=== PATIENT | male | born 1935 | race Caucasian/White ===

== ENCOUNTER 2020-08-16 11:13 | Inpatient (IN) | payer MEDICARE, MEDICAID ==
[~2020-08-16] VITALS: Ht 167.6 cm; Wt 61.2 kg
[2020-08-16 11:40] VITALS: BP 108/87
[2020-08-16] MEDS ORDERED: DONEPEZIL HCL5 M2 GT (12:07)
[2020-08-16] MEDS ORDERED: ATORVASTATIN CA10 MG GT (12:07)
[2020-08-16] MEDS ORDERED: AMLODIPINE BESYL5 MG GT (12:07)
[2020-08-16] MEDS ORDERED: CRANBERRY450 M4 GT (12:07)
[2020-08-16] MEDS ORDERED: ALBUTEROL SULF8.5 G1 INH (12:07)
[2020-08-16] MEDS ORDERED: ASPIRIN81 MG GT (12:07)
[2020-08-16] MEDS ORDERED: GUAIFENESI100 MG/5 M GT (12:13)
[2020-08-16] MEDS ORDERED: VIBRAMYCIN100 MG ORAL (12:13)
[2020-08-16] MEDS ORDERED: NAMENDA5 MG ORAL (12:13)
[2020-08-16] MEDS ORDERED: DOCUSATE SODIU100 MG GT (12:13)
[2020-08-16] MEDS ORDERED: METOPROLOL TAR100 M1 GT (12:13)
[2020-08-16] MEDS ORDERED: NOVOLOG100 UNITS1 SUBQ (12:13)
[2020-08-16] MEDS ORDERED: MULTIVITAMINS1 EAC8 GT (12:13)
[2020-08-16] MEDS ORDERED: MILK OF MA400 MG/51 GT (12:13)
[2020-08-16] MEDS ORDERED: ZYPREXA2.5 MG GT (12:19)
[2020-08-16] MEDS ORDERED: VITAMIN B-1100 MG GT (12:19)
[2020-08-16] MEDS ORDERED: PROTONIX40 M2 GT (12:19)
[2020-08-16] MEDS ORDERED: ASCORBIC ACID500 MG GT (12:19)
[2020-08-16] MEDS ORDERED: ACETAMINOPHEN325 M1 GT (12:19)
--- NOTE | 2020-08-16 12:21 | Emergency Room Report ---
History of Present Illness General Chief Complaint: Generalized Weakness Source: Patient, EMS Present Illness HPI 85M PMHx DM HTN HLD CHF CKD BPH, GERD, chronic deconditioning, atrophy, dysphagia, schizophrenia, anxiety, electrolyte disturbance,BIBA from [facility] for decreased oral intake and altered mental status since yesterday. History is limited secondary to patient's clinical condition. PMD Shechter The patient's symptoms were gradual onset, severity was moderate, duration since 1 day. Quality: Generally weak Past medical history: DM HTN HLD CHF CKD BPH, GERD, chronic deconditioning, atrophy, dysphagia, schizophrenia, anxiety, electrolyte disturbance Past surgical history: PEG tube Smoking: Denies Alcohol use: Denies Drug use: Denies Review of systems: History is limited secondary to patient's clinical status 14 point Review of Systems is otherwise negative except per HPI Physical Exam: GENERAL: Awake_alert_ nontoxic, no acute distress Spo2 95% on RA -normal. Chronically ill-appearing. Cachectic. EYES: Extraocular muscles are intact. Conjunctivae clear. Lids without swelling ENT: External nose and ear normal_in_appearance. Oropharynx clear. Head_atraumatic, dry_oral_mucosa NECK: No JVD. No meningismus. No thyromegaly. Supple. Trachea midline RESP: Normal respiratory effort. Symmetric rise. No stridor. Clear_to_auscultation_No_rales_No_wheezes CARDIAC: Regular rate and regular rhytm. No_significant pedal edema. ABDOMEN: Soft. Nondistended. Nontender_No_rebound_or_guarding. G-tube. Soiled diaper MSK: Normal muscle tone, without rigidity. Extremities without asymmetric deformity or swelling. SKIN: Warm and dry. No visible cyanosis or pallor NEUROLOGIC: Alert, oriented x0. Motor_and_sensation_grossly_intact. Uncooperative with examination Psych: Normal mood and affect, normal judgment and insight - COORDINATION OF CARE Case was discussed with: Patient , Patient's Physician Any labs and imaging that were ordered were interpreted as part of the medical decision making: Medical Decision Making/Plan: Differential diagnosis includes dehydration, hypovolemia, electrolyte derangement such as hyponatremia / hypoglycemia, neuromuscular junction disorder such as myasthenia gravis, GI bleed, anemia, UTI, among others. Patient sent from intermediate facility for generalized weakness. Patient is uncooperative with examination and has baseline schizophrenia. The patient feels generally weak but has no focal neurologic deficits, abnormal muscle tone, hypo/hyperreflexia, or fatigability. No evidence of stroke, spinal cord emergency, neuromuscular junction disorder, or multiple sclerosis at this time. Lab results were concerning for severe dehydration with sodium level of 169, lactate elevation greater than 3, and FRANCY. Creatinine is 2.1 at this time. Suspect prerenal azotemia. Cannot rule out infectious process. Urine is pending. Patient is hypovolemic therefore he will get rehydrated and will be straight cathed for urine. Antibiotics given. COVID swab was negative. The patient appears well hydrated and has normal vitals, no evidence of significant dehydration / hypovolemia at this time. Although the patient does not have any evidence of an emergent cause of their symptoms, they do appear to be significantly generally weak and deconditioned with failure to thrive. The patient will therefore be admitted for rehabilitation, physical therapy, and potential placement into a facility with increased resources for care given the patients inability to adequately perform their activities of daily living which would be required to be safely discharged home. I spoke with Dr. Dee, and reviewed the patients presentation, workup, results, and treatment. They will admit the patient for further care and evaluation, and assume care of the patient at this time. Allergies: Coded Allergies: VANCOMYCIN (Verified Allergy, Unknown, 08/16/20) COVID-19 Screening Contact w/high risk pt: No Experienced COVID-19 symptoms?: Yes COVID-19 Testing performed GUIDE SETTER: Yes COVID-19 Screening: Negative COVID-19 COVID-19 Testing Source: 08/11/20 Nursing Documentation-[facility] Hx Hypertension: Yes Hx Diabetes: Yes - type 2 Physical Exam Vital Signs Date Time Temp Pulse Resp B/P (MAP) Pulse Ox O2 Delivery O2 Flow Rate FiO2 08/16/20 11:19 98.2 82 19 108/87 (94) 98 Room Air Sp02 EP Interpretation: reviewed, normal Medical Decision Making Diagnostic Impression: Primary Impression: Episode of generalized weakness Additional Impressions: Hypernatremia Severe dehydration FRANCY (acute kidney injury) Lactic acidosis Failure to thrive EKG Diagnostic Results Troponin ordered: Yes IKER Scribe Text 12-lead EKG (interpreted by me) Time: 1153 Indication: Sinus Tracing visualized and Interpreted by me. Rhythm: Normal sinus rhythm Rate: 85 bpm QTc: 514 Morphology: No_significant_ST_elevations_or_depressions, No STEMI Impression: Normal_sinus_rhythm_without_significant_abnormality. Sinus arrhythmia. RBBB. LAFB. LVH. Rhythm Strip Diag. Results Rhythm Strip Time: 13:24 EP Interpretation: yes Rate: 93 Rhythm: NSR, no PVC's, no ectopy Chest X-Ray Diagnostic Results Chest X-Ray Diagnostic Results : IKER Scrbreana Text Chest X-Ray: Views: [ 1 ] view(s) Indication: Cough Findings: Normal heart size. Mediastinum normal. Pneumonia Impression: Pulmonary consolidations. Left lower lobe atelectasis versus pleural effusion. The X-ray(s) were independently viewed and interpreted contemporaneously Electronically signed by Sadia bruno DO Last Vital Signs Date Time Temp Pulse Resp B/P (MAP) Pulse Ox O2 Delivery O2 Flow Rate FiO2 08/16/20 11:40 82 19 Room Air 08/16/20 11:19 98.2 108/87 (94) 98 Disposition: ADMITTED INPATIENT Admit Decision Time: 12:24 Condition: Stable Sadia Lamb D.O. Aug 16, 2020 12:21
[2020-08-16 13:13] LABS: BASOPHILS % (AUTO) 0.6 % (0.0-2.0); EOSINOPHILS % (AUTO) 1.9 % (0.0-3.0); HEMATOCRIT 46.2 % (42.0-52.0); HEMOGLOBIN 13.9 G/DL (14.2-18.0); MEAN CORPUSCULAR VOLUME 89 FL (80-99); MONOCYTES % (AUTO) 6.7 % (1.0-10.0); NEUTROPHILS % (AUTO) 70.8 % (45.0-75.0); PLATELET COUNT 203 K/UL (150-450); RED BLOOD COUNT 5.19 M/UL (4.70-6.10); RED CELL DISTRIBUTION WIDTH 15.1 % (11.6-14.8); WHITE BLOOD COUNT 7.2 K/UL (4.8-10.8)
[2020-08-16 13:40] LABS: ALANINE AMINOTRANSFERASE 45 U/L (12-78); ALBUMIN 3.2 G/DL (3.4-5.0); ALBUMIN/GLOBULIN RATIO 0.6 (1.0-2.7); ALKALINE PHOSPHATASE 98 U/L (46-116); ANION GAP 9 mmol/L (5-15); ASPARTATE AMINO TRANSFERASE 23 U/L (15-37); BILIRUBIN,TOTAL 0.4 MG/DL (0.2-1.0); BLOOD UREA NITROGEN 57 mg/dL (7-18); CALCIUM 10.7 MG/DL (8.5-10.1); CARBON DIOXIDE 30 MMOL/L (21-32); CHLORIDE 130 MMOL/L (98-107); CREATINE KINASE 52 U/L (26-308); CREATININE 2.1 MG/DL (0.55-1.30); POTASSIUM 3.6 MMOL/L (3.5-5.1)
[2020-08-16 13:43] LABS: SODIUM 169 MMOL/L (136-145)
[2020-08-16] MEDS ORDERED: cefTRIAXone 1 GM in NS 55 ML IVPB ONE (13:45)
--- NOTE | 2020-08-16 14:49 | Diagnostic Imaging Report ---
Indication: Cough Technique: One view of the chest Comparison: none Findings: There is elevation of the left hemidiaphragm. Inspiration is suboptimal overall. Lungs and pleural spaces are clear except for some mild interstitial prominence which is probably due to senescent changes. Impression: No acute process
--- NOTE | 2020-08-16 15:15 | History and Physical Report ---
DATE OF ADMISSION: 08/16/2020 CHIEF COMPLAINT: Generalized weakness. HISTORY OF PRESENT ILLNESS: This is an 85-year-old male from [facility]. I have been called several times during the last few weeks about the patient becoming gradually weak. The patient tested several times positive for COVID-19. The patient himself is unable to give any further information due to combination of schizophrenia and multiple medical problems. PAST MEDICAL HISTORY: 1. Schizophrenia. 2. Type 2 diabetes mellitus. 3. Hypertensive cardiovascular disease. 4. Gastroesophageal reflux disease. 5. Status post gastrostomy tube, which has been pulled recently and not reinserted due to insistence of the nursing when the patient started eating. 6. Dysphagia. 7. Benign prostatic hypertrophy. MEDICATIONS: Albuterol inhaler, amlodipine, baby aspirin, atorvastatin, cranberry tablet, Aricept, doxy capsules started on 08/12/2020, Colace, vitamin D3, guaifenesin solution, metoprolol, milk of magnesia p.r.n., multivitamins, Namenda, insulin sliding scale, Protonix, Pro-Stat liquid, thiamine, Tylenol p.r.n., vitamin C, and Zyprexa. ALLERGIES: No known drug allergies. FAMILY HISTORY: Unable to obtain due to his mental status. SOCIAL HISTORY: Unable to obtain due to his mental status. REVIEW OF SYSTEMS: Unable to obtain due to his mental status. PHYSICAL EXAMINATION: GENERAL: This is an elderly male who is obtunded. VITAL SIGNS: Blood pressure 108/87, pulse 82, respirations 19, and temperature 98.2, oral. HEENT: The head is normocephalic and atraumatic. Pupils are equal and reactive to light. NECK: Supple. Trachea is midline. There was no lymphadenopathy or thyromegaly. LUNGS: Bilateral rhonchi. HEART: Regular rate and rhythm without rubs, murmurs, or gallops. ABDOMEN: Soft and nontender. Bowel sounds were active. EXTREMITIES: No clubbing, cyanosis, or edema. NEUROLOGICAL: He is obtunded. There were no gross focal findings. LABORATORY AND ANCILLARY DATA: CBC within normal limits. Chemistry, sodium 169, potassium 3.6, BUN 57, creatinine 2.1, glucose 223. Lactic acid 3.6. SARS COVID is negative. Urinalysis pending. ASSESSMENT: 1. Severe volume depletion. 2. Severe hypernatremia. 3. Rule out septicemia. PLAN: 1. Hypotonic volume repletion with D5W. 2. Broad spectrum IV antibiotics. 3. ID and Pulmonary consults. Steven Dee M.D. DR: GENE JOB#: [id number] CC:
[2020-08-16 15:23] VITALS: BP 119/76
[2020-08-16] MEDS ORDERED: Albuterol ud Inhalation HHN PRN (19:15)
[2020-08-16] MEDS ORDERED: Albuterol 90mcg Inhaler 8gm INH PRN (19:15)
--- NOTE | 2020-08-16 19:27 | Pulmonology Progress Note ---
Subjective Allergies: Coded Allergies: VANCOMYCIN (Verified Allergy, Unknown, 08/16/20) Objective Last 24 Hour Vital Signs Date Time Temp Pulse Resp B/P (MAP) Pulse Ox O2 Delivery O2 Flow Rate FiO2 08/16/20 18:13 Nasal Cannula 3.0 08/16/20 15:37 98.2 84 19 119/76 98 Room Air 08/16/20 15:23 98.2 84 19 119/76 98 Room Air 08/16/20 11:40 82 19 Room Air 08/16/20 11:40 98.2 19 108/87 98 Room Air 08/16/20 11:19 98.2 82 19 108/87 (94) 98 Room Air Microbiology Date/Time Source Procedure Growth Status 08/16/20 12:08 Nasopharynx SARS-CoV-2 RdRp Gene Assay - Final Complete Laboratory Tests 08/16/20 12:08: White Blood Count 7.2, Red Blood Count 5.19, Hemoglobin 13.9L, Hematocrit 46.2, Mean Corpuscular Volume 89, Mean Corpuscular Hemoglobin 26.9L, Mean Corpuscular Hemoglobin Concent 30.2L, Red Cell Distribution Width 15.1H, Platelet Count 203, Mean Platelet Volume 12.5H, Neutrophils (%) (Auto) 70.8, Lymphocytes (%) (Auto) 20.0, Monocytes (%) (Auto) 6.7, Eosinophils (%) (Auto) 1.9, Basophils (%) (Auto) 0.6, Sodium Level 169*H, Potassium Level 3.6, Chloride Level 130H, Carbon Diox jim Level 30, Anion Gap 9, Blood Urea Nitrogen 57H, Creatinine 2.1H, Estimat Glomerular Filtration Rate 30.1, Glucose Level 223H, Lactic Acid Level 3.60H, Calcium Level 10.7H, Total Bilirubin 0.4, Aspartate Amino Transf (AST/SGOT) 23, Alanine Aminotransferase (ALT/SGPT) 45, Alkaline Phosphatase 98, Total Creatine Kinase 52, Troponin I 0.052, C-Reactive Protein, Quantitative 14.2H, Pro-B-Type Natriuretic Peptide 298H, Total Protein 8.5H, Albumin 3.2L, Globulin 5.3, Albumin/Globulin Ratio 0.6L, Lipase 112 08/16/20 14:49: Lactic Acid Level 1.70 Current Medications Medications (Trade) Dose Ordered Sig/Deepali Route PRN Reason Start Time Stop Time Status Last Admin Dose Admin Acetaminophen (Tylenol) 650 mg Q4H PRN ORAL Temp >100.5 08/16/20 17:00 09/15/20 16:59 Albuterol Sulfate (Proventil) 2.5 mg Q4H PRN HHN Shortness of Breath 08/16/20 19:15 08/21/20 19:14 Heparin Sodium (Porcine) (Heparin 5000 units/ml) 5,000 units EVERY 12 HOURS SUBQ 08/16/20 21:00 09/30/20 20:59 Piperacillin Sod/ Tazobactam Sod 3.375 gm/Sodium Chloride 110 ml @ 27.5 mls/hr Q12HR IVPB 08/16/20 21:00 08/23/20 20:59 Potassium Chloride 30 meq/ Dextrose 1,015 ml @ 125 mls/hr Q8H8M IV 08/16/20 19:00 09/15/20 18:59 08/16/20 18:02 Assessment/Plan Assessment/Plan Pulmonary Consultation HPI: 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 Developed hypoxia after admission, currently on 3L/min O2. Started on broad spectrum antibiotics. The patient himself is not able to give any history. Past Medical History: Schizophrenia. Type 2 diabetes mellitus. Hypertensive cardiovascular disease. Gastroesophageal reflux disease. Status post gastrostomy tube, which has been pulled recently Dysphagia. Benign prostatic hypertrophy. Medications noted Allergies: Vancomycin: No known drug allergies. Social History:NA Family History: NA Review of Systems: NA Objective: Vital Signs Noted PE: GENERAL: This is an elderly male who is obtunded. HEENT: The head is normocephalic and atraumatic. Pupils are equal and reactive to light. NECK: Supple. Trachea is midline. There was no lymphadenopathy or thyromegaly. LUNGS: Bilateral rhonchi. HEART: Regular rate and rhythm without rubs, murmurs, or gallops. ABDOMEN: Soft and nontender. Bowel sounds were active. EXTREMITIES: No clubbing, cyanosis, or edema. NEUROLOGICAL: He is obtunded. There were no gross focal findings. Per report,deferred Covid 19 Laboratory noted CXR:noted - Pulmonary infiltrates Assessment: Covid Pneumonia, possible Sepsis Hypoxic Respiratory Failure Severe volume depletion Severe hypernatremia Schizophrenia. Type 2 diabetes mellitus. Hypertensive cardiovascular disease. Gastroesophageal reflux disease. Status post gastrostomy tube, which has been pulled recently Dysphagia. Benign prostatic hypertrophy Plan: Continue Antibiotics- ID consulted O2 PRN Decadron IVF Bronchodilators PPX Monitor labs Zian Cortes MD Aug 16, 2020 19:27
[2020-08-16] MEDS: dexAMETHasone 10mg/ml Inj IV SCH (20:44)
[2020-08-16] MEDS: Piperacillin/Tazobactam 3.375 GM in NS 110 ML IVPB SCH (20:45)
[2020-08-16] MEDS: Heparin 5000 units/ml inj SUBQ SCH (20:50)
[2020-08-17] VITALS: BP 135/79
[2020-08-17 04:00] VITALS: BP 143/89
[2020-08-17 06:48] LABS: HEMATOCRIT 39.2 % (42.0-52.0); HEMOGLOBIN 12.5 G/DL (14.2-18.0); MEAN CORPUSCULAR VOLUME 85 FL (80-99); PLATELET COUNT 184 K/UL (150-450); RED CELL DISTRIBUTION WIDTH 15.4 % (11.6-14.8)
[2020-08-17 06:59] LABS: CALCIUM 10.4 MG/DL (8.5-10.1); CREATININE 1.7 MG/DL (0.55-1.30)
[2020-08-17 08:00] VITALS: BP 155/89
[2020-08-17] MEDS: dexAMETHasone 10mg/ml Inj IV SCH (09:34)
[2020-08-17] MEDS: Piperacillin/Tazobactam 3.375 GM in NS 110 ML IVPB SCH ×2 (09:34→20:49)
[2020-08-17] MEDS: Heparin 5000 units/ml inj SUBQ SCH ×2 (09:35→21:06)
[2020-08-17 12:00] VITALS: BP 150/99
--- NOTE | 2020-08-17 13:20 | General Progress Note ---
Subjective Allergies: Coded Allergies: VANCOMYCIN (Verified Allergy, Unknown, 08/16/20) Subjective Confused Objective Last 24 Hour Vital Signs Date Time Temp Pulse Resp B/P (MAP) Pulse Ox O2 Delivery O2 Flow Rate FiO2 08/17/20 12:00 97.2 82 20 150/99 (116) 94 08/17/20 09:00 Room Air 08/17/20 08:00 97.4 87 20 155/89 (111) 94 08/17/20 04:00 97.2 90 20 143/89 (107) 93 08/17/20 00:00 97.5 82 20 135/79 (97) 93 08/16/20 18:13 Nasal Cannula 3.0 08/16/20 15:37 98.2 84 19 119/76 98 Room Air 08/16/20 15:23 98.2 84 19 119/76 98 Room Air Laboratory Tests 08/16/20 14:49: Lactic Acid Level 1.70 08/17/20 05:55: White Blood Count 5.0, Red Blood Count 4.60L, Hemoglobin 12.5L, Hematocrit 39.2L , Mean Corpuscular Volume 85, Mean Corpuscular Hemoglobin 27.2, Mean Corpuscular Hemoglobin Concent 31.9L, Red Cell Distribution Width 15.4H, Platelet Count 184, Mean Platelet Volume 12.2H, Neutrophils (%) (Auto) , Lymphocytes (%) (Auto) , Monocytes (%) (Auto) , Eosinophils (%) (Auto) , Basophils (%) (Auto) , Differential Total Cells Counted 100, Neutrophils % (Manual) 87H, Lymphocytes % (Manual) 12L, Monocytes % (Manual) 1, Eosinophils % (Manual) 0, Basophils % (Manual) 0, Band Neutrophils 0, Platelet Estimate Adequate, Platelet Morphology Normal, Anisocytosis 1+, Sodium Level 165*H, Potassium Level 4.0, Chloride Level 131H, Carbon Dioxide Level 24, Anion Gap 8, Blood Urea Nitrogen 49H, Creatinine 1.7H, Estimat Glomerular Filtration Rate 38.4, Glucose Level 260H, Calcium Level 10.4H, Magnesium Level 2.6H Height (Feet): 5 Height (Inches): 6.00 Weight (Pounds): 135 Objective CV RR Lungs CTA Abd SNT. BS + E No CCE Assessment/Plan Assessment/Plan: Severe volume depletion, hypernatremia ---hypotonic IVF ---improving parameters. Holding [facility] med. Steven Dee MD Aug 17, 2020 13:20
--- NOTE | 2020-08-17 14:45 | Consultation ---
DATE OF CONSULTATION: 08/17/2020 INFECTIOUS DISEASE CONSULTATION CONSULTING PHYSICIAN: Dorei Chaudhary MD. REFERRING PHYSICIAN: Steven Dee MD. REASON FOR CONSULTATION: COVID-19 pneumonia. HISTORY OF PRESENTING ILLNESS: This is an 85-year-old gentleman with history of diabetes, hypertension, schizophrenia, GERD, benign prostatic hypertrophy, who comes in with increasing weakness. He has COVID-19 pneumonia and an Infectious Diseases consultation has been obtained for antibiotics. PAST MEDICAL HISTORY: 1. History of diabetes. 2. Hypertension. 3. Schizophrenia. 4. GERD. 5. Dysphagia. 6. Benign prostatic hypertrophy. SOCIAL HISTORY: Unknown. FAMILY HISTORY: Unknown. REVIEW OF SYSTEMS: Unable to obtain currently. MEDICATIONS: As an inpatient, he is on subcutaneous heparin, Zosyn, dexamethasone, albuterol, potassium, Tylenol. ALLERGIES: He is allergic to vancomycin. PHYSICAL EXAMINATION: VITAL SIGNS: Temperature 97.2, T-max of 98.2, pulse 82, respiratory rate 20, blood pressure 150/99. O2 saturation of 94% on room air. HEENT: Pupils are equally reactive to light and accommodation. Mouth appears clean without thrush. NECK: Supple. No adenopathy. No JVD. CARDIOVASCULAR: Regular rate and rhythm. No murmurs. LUNGS: Clear to auscultation bilaterally. No crackles. No wheezes. ABDOMEN: Soft, nontender. No organomegaly. EXTREMITIES: No cyanosis, no clubbing, no edema. Chemistry, sodium 169, potassium 3.6, BUN 57, creatinine 2.1, glucose 223. Lactic acid 3.6. SARS COVID is negative LABORATORY DATA: White count of 5, hemoglobin 12.5, hematocrit 39.2, MCV 85, platelet count of 184,000. Neutrophils of 87%. Sodium 165, potassium 4, chloride 131, bicarb 24, BUN 49, creatinine 1.7. Glucose of 260. Calcium 10.4. Total bilirubin 0.4, AST 23, ALT 45, alkaline phosphatase 98. CK of 52, troponin 0.05. C-reactive protein of 14. Beta-natriuretic peptide 298. Total protein 8.5, albumin 3.2. Lipase of 112. COVID-19 rapid test is negative. Chest x-ray is showing no acute process. ASSESSMENT: This is an 85-year-old gentleman with history of diabetes, hypertension, schizophrenia, and GERD, who comes in with weakness and would like to rule out, 1. Urinary tract infection. 2. He has previous history of COVID-19, but currently is negative. 3. Diabetes. 4. Hypertension. 5. Schizophrenia. PLAN: 1. Continue Zosyn. 2. We will order UA and urine cultures. 3. We will follow up cultures and adjust antibiotics accordingly. I would like to thank Dr. Dee for this consultation. Dorie Chaudhary M.D. DR: ANDREINA JOB#: [id number] CC:
[2020-08-17 16:00] VITALS: BP 143/86
[2020-08-17 20:00] VITALS: BP 147/90
[2020-08-17] MEDS ORDERED: ACETAMINOPHEN325 M1 ORAL (21:15)
[2020-08-17] MEDS ORDERED: ERGOCALCIF200 MCG/1 GT (21:15)
[2020-08-17] MEDS ORDERED: PRO-STAT LIQUID30 ML ORAL (21:15)
--- NOTE | 2020-08-17 21:26 | Pulmonology Progress Note ---
Subjective ROS Limited/Unobtainable: Yes Allergies: Coded Allergies: VANCOMYCIN (Verified Allergy, Unknown, 08/16/20) Objective Last 24 Hour Vital Signs Date Time Temp Pulse Resp B/P (MAP) Pulse Ox O2 Delivery O2 Flow Rate FiO2 08/17/20 21:12 Room Air 08/17/20 16:00 97.2 81 20 143/86 (105) 94 08/17/20 12:00 97.2 82 20 150/99 (116) 94 08/17/20 09:00 Room Air 08/17/20 08:00 97.4 87 20 155/89 (111) 94 08/17/20 04:00 97.2 90 20 143/89 (107) 93 08/17/20 00:00 97.5 82 20 135/79 (97) 93 Microbiology Date/Time Source Procedure Growth Status 08/16/20 12:08 Nasopharynx SARS-CoV-2 RdRp Gene Assay - Final Complete Laboratory Tests 08/17/20 05:55: White Blood Count 5.0, Red Blood Count 4.60L, Hemoglobin 12.5L, Hematocrit 39.2L , Mean Corpuscular Volume 85, Mean Corpuscular Hemoglobin 27.2, Mean Corpuscular Hemoglobin Concent 31.9L, Red Cell Distribution Width 15.4H, Platelet Count 184, Mean Platelet Volume 12.2H, Neutrophils (%) (Auto) , Lymphocytes (%) (Auto) , Monocytes (%) (Auto) , Eosinophils (%) (Auto) , Basophils (%) (Auto) , Differential Total Cells Counted 100, Neutrophils % (Manual) 87H, Lymphocytes % (Manual) 12L, Monocytes % (Manual) 1, Eosinophils % (Manual) 0, Basophils % (Manual) 0, Band Neutrophils 0, Platelet Estimate Adequate, Platelet Morphology Normal, Anisocytosis 1+, Sodium Level 165*H, Potassium Level 4.0, Chloride Level 131H, Carbon Dioxide Level 24, Anion Gap 8, Blood Urea Nitrogen 49H, Creatinine 1.7H, Estimat Glomerular Filtration Rate 38.4, Glucose Level 260H, Calcium Level 10.4H, Magnesium Level 2.6H Current Medications Medications (Trade) Dose Ordered Sig/Deepali Route PRN Reason Start Time Stop Time Status Last Admin Dose Admin Acetaminophen (Tylenol) 650 mg Q4H PRN ORAL Temp >100.5 08/16/20 17:00 09/15/20 16:59 Albuterol Sulfate (Proventil) 2.5 mg Q4H PRN HHN Shortness of Breath 08/16/20 19:15 08/21/20 19:14 Dexamethasone Sodium Phosphate (Decadron 10mg/ ml Inj) 6 mg DAILY IV 08/16/20 19:15 08/25/20 09:01 08/17/20 09:34 Dextrose (Dextrose 50%) 25 ml Q30M PRN IV Hypoglycemia 08/16/20 19:15 11/14/20 19:14 Dextrose (Dextrose 50%) 50 ml Q30M PRN IV Hypoglycemia 08/16/20 19:15 11/14/20 19:14 Heparin Sodium (Porcine) (Heparin 5000 units/ml) 5,000 units EVERY 12 HOURS SUBQ 08/16/20 21:00 09/30/20 20:59 08/17/20 21:06 Piperacillin Sod/ Tazobactam Sod 3.375 gm/Sodium Chloride 110 ml @ 27.5 mls/hr Q12HR IVPB 08/16/20 21:00 08/23/20 20:59 08/17/20 20:49 Potassium Chloride 30 meq/ Dextrose 1,015 ml @ 125 mls/hr Q8H8M IV 08/16/20 19:00 09/15/20 18:59 08/17/20 11:31 Assessment/Plan Assessment/Plan Pulmonary Progress Note HPI: Patient is an 85-year-old [facility] Resident with past medical history of schizophrenia,Type2 Diabetes, Hypertension,GERD,Dysphagia, admitted with COVID-19 pneumonia. Developed hypoxia after admission, currently on RA. IDfollowing. The patient himself is not able to give any history. Past Medical History: Schizophrenia. Type 2 diabetes mellitus. Hypertensive cardiovascular disease. Gastroesophageal reflux disease. Status post gastrostomy tube, which has been pulled recently Dysphagia. Benign prostatic hypertrophy. Medications noted Allergies: Vancomycin: No known drug allergies. Improved O2 requirements Objective: Vital Signs Noted PE: Deferred Covid 19 Laboratory noted CXR:noted - Pulmonary infiltrates Assessment: Covid Pneumonia, possible Sepsis Hypoxic Respiratory Failure Severe volume depletion Severe hypernatremia Schizophrenia. Type 2 diabetes mellitus. Hypertensive cardiovascular disease. Gastroesophageal reflux disease. Status post gastrostomy tube, which has been pulled recently Dysphagia. Benign prostatic hypertrophy Plan: Continue Antibiotics- ID consulted O2 PRN Decadron IVF Bronchodilators PPX Monitor labs Zain Cortes MD Aug 17, 2020 21:26
[2020-08-18] VITALS: BP 157/81
[2020-08-18 04:00] VITALS: BP 138/82
[2020-08-18 06:48] LABS: APPEARANCE,URINE SLIGHTLY CLOUDY; BILIRUBIN, URINE NEGATIVE (NEGATIVE); COLOR,URINE YELLOW; GLUCOSE, URINE (UA) NEGATIVE (NEGATIVE); KETONES,URINE 1+ (NEGATIVE); LEUKOCYTE ESTERASE ,URINE 1+ (NEGATIVE); NITRITE,URINE NEGATIVE (NEGATIVE); PH,URINE 5 (4.5-8.0); PROTEIN,URINE 1+ (NEGATIVE); UROBILINOGEN,URINE NORMAL MG/DL (0.0-1.0)
[2020-08-18 06:56] LABS: BASOPHILS % (AUTO) 0.4 % (0.0-2.0); EOSINOPHILS % (AUTO) 0.1 % (0.0-3.0); HEMATOCRIT 45.4 % (42.0-52.0); HEMOGLOBIN 13.2 G/DL (14.2-18.0); MEAN CORPUSCULAR VOLUME 93 FL (80-99); NEUTROPHILS % (AUTO) 72.7 % (45.0-75.0); PLATELET COUNT 187 K/UL (150-450); RED BLOOD COUNT 4.86 M/UL (4.70-6.10); RED CELL DISTRIBUTION WIDTH 14.3 % (11.6-14.8); WHITE BLOOD COUNT 6.3 K/UL (4.8-10.8)
[2020-08-18 07:05] LABS: CALCIUM 10.7 MG/DL (8.5-10.1); CREATININE 1.8 MG/DL (0.55-1.30); PHOSPHORUS 3.8 MG/DL (2.5-4.9); POTASSIUM 3.9 MMOL/L (3.5-5.1)
[2020-08-18 08:00] VITALS: BP_SYST 147; BP_SYST 175; BP_DIAS 81
[2020-08-18] MEDS: dexAMETHasone 10mg/ml Inj IV SCH (08:26)
[2020-08-18] MEDS: Piperacillin/Tazobactam 3.375 GM in NS 110 ML IVPB SCH ×2 (08:26→17:16)
[2020-08-18] MEDS: Heparin 5000 units/ml inj SUBQ SCH ×2 (08:27→20:17)
--- NOTE | 2020-08-18 09:51 | CDS Physician Query ---
Clarification is required for compliance, coding accuracy, and to reflect severity of illness for this patient Dear Dr. Steven Dee Date: 08/18/2020 Director Of Litigation/CDS Name: Destiny Doherty Clinical documentation states: HNP: 85-year-old male from [facility]. I have been called several times during the last few weeks about the patient becoming gradually weak...1. Severe volume depletion. 2. Severe hypernatremia. 3. Rule out septicemia. PLAN: 1. Hypotonic volume repletion with D5W. 2. Broad spectrum IV antibiotics. 3. ID and Pulmonary consults. 08/17 note: Subjective Confused Please indicate the nature and chronicity of the condition below: [X] Metabolic Encephalopathy [] Toxic Encephalopathy [] Toxic - Metabolic Encephalopathy [] Encephalopathy, Other [x] Dementia with Delirium [] Hypoxic encephalopathy [] Posterior reversible encephalopathy syndrome [] Other: [] Not Applicable Present on Admission: [] Yes [] No [] Clinically Undetermined Physician signature Date Please also document in your Progress Notes and/or Discharge Summary and indicate if the condition was present on admission. MTDD
[2020-08-18 12:00] VITALS: BP_SYST 159; BP_SYST 169; BP_DIAS 91
--- NOTE | 2020-08-18 13:27 | General Progress Note ---
Subjective Allergies: Coded Allergies: VANCOMYCIN (Verified Allergy, Unknown, 08/16/20) Subjective Confused Objective Last 24 Hour Vital Signs Date Time Temp Pulse Resp B/P (MAP) Pulse Ox O2 Delivery O2 Flow Rate FiO2 08/18/20 12:00 98.8 71 19 169/91 (117) 99 08/18/20 12:00 98.8 71 19 159/91 (113) 99 08/18/20 09:00 Room Air 08/18/20 08:00 98.3 56 19 147/81 (103) 98 08/18/20 04:00 97.3 67 20 138/82 (100) 95 08/18/20 00:00 97.3 69 20 157/81 (106) 95 08/17/20 21:12 Room Air 08/17/20 20:00 97.3 62 20 147/90 (109) 94 08/17/20 16:00 97.2 81 20 143/86 (105) 94 Laboratory Tests 08/18/20 05:30: Urine Color Yellow, Urine Appearance Slightly cloudy, Urine pH 5, Urine Specific [place] 1.020, Urine Protein 1+H, Urine Glucose (UA) Negative, Urine Ketones 1+H , Urine Blood Negative, Urine Nitrite Negative, Urine Bilirubin Negative, Urine Urobilinogen Normal, Urine Leukocyte Esterase 1+H, Urine RBC 0, Urine WBC 5-10H, Urine Squamous Epithelial Cells Occasional, Urine Uric Acid Crystals ManyH, Urine Bacteria Few 08/18/20 05:50: White Blood Count 6.3, Red Blood Count 4.86, Hemoglobin 13.2L, Hematocrit 45.4, Mean Corpuscular Volume 93#, Mean Corpuscular Hemoglobin 27.1, Mean Corpuscular Hemoglobin Concent 29.0L, Red Cell Distribution Width 14.3, Platelet Count 187, Mean Platelet Volume 12.6H, Neutrophils (%) (Auto) 72.7, Lymphocytes (%) (Auto) 21.0, Monocytes (%) (Auto) 6.0, Eosinophils (%) (Auto) 0.1, Basophils (%) (Auto) 0.4, Sodium Level 167*H, Potassium Level 3.9, Chloride Level 131H, Carbon Dioxide Level 28, Anion Gap 10, Blood Urea Nitrogen 48H, Creatinine 1.8H, Estima t Glomerular Filtration Rate 36.0, Glucose Level 136#H, Calcium Level 10.7H, Phosphorus Level 3.8, Magnesium Level 2.7H Height (Feet): 5 Height (Inches): 6.00 Weight (Pounds): 135 Objective CV RR Lungs CTA Abd SNT. BS + E No CCE Assessment/Plan Assessment/Plan: Severe volume depletion, hypernatremia ---hypotonic IVF ---improving parameters. Holding SNF meds. Na 167!!! m/p DI!!!! Steven Dee MD Aug 18, 2020 13:27
[2020-08-18 16:00] VITALS: BP 139/76
--- NOTE | 2020-08-18 16:35 | Infectious Diseases Prog Note ---
Assessment/Plan Assessment/Plan A; 1. Urinary tract infection. 2. He has previous history of COVID19, but currently is negative. 3. Diabetes. 4. Hypertension. 5. Schizophrenia. 6. Hypernatremia PLAN: 1. Continue Zosyn. 2. We will f/u urine culture Subjective ROS Limited/Unobtainable: Yes Neurologic: Reports: confusion, other - on restraint Allergies: Coded Allergies: VANCOMYCIN (Verified Allergy, Unknown, 08/16/20) Objective Last 24 Hour Vital Signs Date Time Temp Pulse Resp B/P (MAP) Pulse Ox O2 Delivery O2 Flow Rate FiO2 08/18/20 12:00 98.8 71 19 169/91 (117) 99 08/18/20 12:00 98.8 71 19 159/91 (113) 99 08/18/20 09:00 Room Air 08/18/20 08:00 98.3 56 19 147/81 (103) 98 08/18/20 04:00 97.3 67 20 138/82 (100) 95 08/18/20 00:00 97.3 69 20 157/81 (106) 95 08/17/20 21:12 Room Air 08/17/20 20:00 97.3 62 20 147/90 (109) 94 Height (Feet): 5 Height (Inches): 6.00 Weight (Pounds): 135 General Appearance: no acute distress Respiratory/Chest: lungs clear Cardiovascular: normal rate Abdomen: soft, non tender Extremities: no edema Neurologic/Psychiatric: disoriented Musculoskeletal: atrophy Microbiology Date/Time Source Procedure Growth Status 08/16/20 12:08 Nasopharynx SARS-CoV-2 RdRp Gene Assay - Final Complete Laboratory Tests Test 08/18/20 05:30 08/18/20 05:50 Urine Color Yellow Urine Appearance Slightly cloudy Urine pH 5 (4.5-8.0) Urine Specific [place] 1.020 (1.005-1.035) Urine Protein 1+ (NEGATIVE) H Urine Glucose (UA) Negative (NEGATIVE) Urine Ketones 1+ (NEGATIVE) H Urine Blood Negative (NEGATIVE) Urine Nitrite Negative (NEGATIVE) Urine Bilirubin Negative (NEGATIVE) Urine Urobilinogen Normal MG/DL (0.0-1.0) Urine Leukocyte Esterase 1+ (NEGATIVE) H Urine RBC 0 /HPF (0 - 0) Urine WBC 5-10 /HPF (0 - 0) H Urine Squamous Epithelial Cells Occasional /LPF Urine Uric Acid Crystals Many /LPF (NONE) H Urine Bacteria Few /HPF (NONE) White Blood Count 6.3 K/UL (4.8-10.8) Red Blood Count 4.86 M/UL (4.70-6.10) Hemoglobin 13.2 G/DL (14.2-18.0) L Hematocrit 45.4 % (42.0-52.0) Mean Corpuscular Volume 93 FL (80-99) # Mean Corpuscular Hemoglobin 27.1 PG (27.0-31.0) Mean Corpuscular Hemoglobin Concent 29.0 G/DL (32.0-36.0) L Red Cell Distribution Width 14.3 % (11.6-14.8) Platelet Count 187 K/UL (150-450) Mean Platelet Volume 12.6 FL (6.5-10.1) H Neutrophils (%) (Auto) 72.7 % (45.0-75.0) Lymphocytes (%) (Auto) 21.0 % (20.0-45.0) Monocytes (%) (Auto) 6.0 % (1.0-10.0) Eosinophils (%) (Auto) 0.1 % (0.0-3.0) Basophils (%) (Auto) 0.4 % (0.0-2.0) Sodium Level 167 MMOL/L (136-145) *H Potassium Level 3.9 MMOL/L (3.5-5.1) Chloride Level 131 MMOL/L (98-107) H Carbon Dioxide Level 28 MMOL/L (21-32) Anion Gap 10 mmol/L (5-15) Blood Urea Nitrogen 48 mg/dL (7-18) H Creatinine 1.8 MG/DL (0.55-1.30) H Estimat Glomerular Filtration Rate 36.0 mL/min (>60) Glucose Level 136 MG/DL (74-106) #H Calcium Level 10.7 MG/DL (8.5-10.1) H Phosphorus Level 3.8 MG/DL (2.5-4.9) Magnesium Level 2.7 MG/DL (1.8-2.4) H Current Medications Medications (Trade) Dose Ordered Sig/Deepali Route PRN Reason Start Time Stop Time Status Last Admin Dose Admin Acetaminophen (Tylenol) 650 mg Q4H PRN ORAL Temp >100.5 08/16/20 17:00 09/15/20 16:59 Albuterol Sulfate (Proventil) 2.5 mg Q4H PRN HHN Shortness of Breath 08/16/20 19:15 08/21/20 19:14 Dexamethasone Sodium Phosphate (Decadron 10mg/ ml Inj) 6 mg DAILY IV 08/16/20 19:15 08/25/20 09:01 08/18/20 08:26 Dextrose (Dextrose 50%) 25 ml Q30M PRN IV Hypoglycemia 08/16/20 19:15 11/14/20 19:14 Dextrose (Dextrose 50%) 50 ml Q30M PRN IV Hypoglycemia 08/16/20 19:15 11/14/20 19:14 Heparin Sodium (Porcine) (Heparin 5000 units/ml) 5,000 units EVERY 12 HOURS SUBQ 08/16/20 21:00 09/30/20 20:59 08/18/20 08:27 Piperacillin Sod/ Tazobactam Sod 3.375 gm/Sodium Chloride 110 ml @ 27.5 mls/hr Q8H IVPB 08/18/20 17:00 08/25/20 16:59 Potassium Chloride 30 meq/ Dextrose 1,015 ml @ 175 mls/hr Q5H48M IV 08/16/20 19:00 09/15/20 18:59 08/17/20 11:31 Dimitri Fraser MD Aug 18, 2020 16:35
[2020-08-18 20:00] VITALS: BP 135/93
--- NOTE | 2020-08-18 21:55 | Pulmonology Progress Note ---
Subjective ROS Limited/Unobtainable: Yes Allergies: Coded Allergies: VANCOMYCIN (Verified Allergy, Unknown, 08/16/20) Objective Last 24 Hour Vital Signs Date Time Temp Pulse Resp B/P (MAP) Pulse Ox O2 Delivery O2 Flow Rate FiO2 08/18/20 21:44 Room Air 08/18/20 20:00 98.4 72 20 135/93 (107) 96 08/18/20 16:00 97.7 64 18 139/76 (97) 96 08/18/20 12:00 98.8 71 19 169/91 (117) 99 08/18/20 12:00 98.8 71 19 159/91 (113) 99 08/18/20 09:00 Room Air 08/18/20 08:00 98.3 56 19 147/81 (103) 98 08/18/20 04:00 97.3 67 20 138/82 (100) 95 08/18/20 00:00 97.3 69 20 157/81 (106) 95 Microbiology Date/Time Source Procedure Growth Status 08/16/20 12:08 Nasopharynx SARS-CoV-2 RdRp Gene Assay - Final Complete Laboratory Tests 08/18/20 05:30: Urine Color Yellow, Urine Appearance Slightly cloudy, Urine pH 5, Urine Specific [place] 1.020, Urine Protein 1+H, Urine Glucose (UA) Negative, Urine Ketones 1+H , Urine Blood Negative, Urine Nitrite Negative, Urine Bilirubin Negative, Urine Urobilinogen Normal, Urine Leukocyte Esterase 1+H, Urine RBC 0, Urine WBC 5-10H, Urine Squamous Epithelial Cells Occasional, Urine Uric Acid Crystals ManyH, Urine Bacteria Few 08/18/20 05:50: White Blood Count 6.3, Red Blood Count 4.86, Hemoglobin 13.2L, Hematocrit 45.4, Mean Corpuscular Volume 93#, Mean Corpuscular Hemoglobin 27.1, Mean Corpuscular Hemoglobin Concent 29.0L, Red Cell Distribution Width 14.3, Platelet Count 187, Mean Platelet Volume 12.6H, Neutrophils (%) (Auto) 72.7, Lymphocytes (%) (Auto) 21.0, Monocytes (%) (Auto) 6.0, Eosinophils (%) (Auto) 0.1, Basophils (%) (Auto) 0.4, Sodium Level 167*H, Potassium Level 3.9, Chloride Level 131H, Carbon Dioxide Level 28, Anion Gap 10, Blood Urea Nitrogen 48H, Creatinine 1.8H, Estimat Glomerular Filtration Rate 36.0, Glucose Level 136#H, Calcium Level 10.7H, Phosphorus Level 3.8, Magnesium Level 2.7H Current Medications Medications (Trade) Dose Ordered Sig/Deepali Route PRN Reason Start Time Stop Time Status Last Admin Dose Admin Acetaminophen (Tylenol) 650 mg Q4H PRN ORAL Temp >100.5 08/16/20 17:00 09/15/20 16:59 Albuterol Sulfate (Proventil) 2.5 mg Q4H PRN HHN Shortness of Breath 08/16/20 19:15 08/21/20 19:14 Dexamethasone Sodium Phosphate (Decadron 10mg/ ml Inj) 6 mg DAILY IV 08/16/20 19:15 08/25/20 09:01 08/18/20 08:26 Dextrose (Dextrose 50%) 25 ml Q30M PRN IV Hypoglycemia 08/16/20 19:15 11/14/20 19:14 Dextrose (Dextrose 50%) 50 ml Q30M PRN IV Hypoglycemia 08/16/20 19:15 11/14/20 19:14 Heparin Sodium (Porcine) (Heparin 5000 units/ml) 5,000 units EVERY 12 HOURS SUBQ 08/16/20 21:00 09/30/20 20:59 08/18/20 20:17 Piperacillin Sod/ Tazobactam Sod 3.375 gm/Sodium Chloride 110 ml @ 27.5 mls/hr Q8H IVPB 08/18/20 17:00 08/25/20 16:59 08/18/20 17:16 Potassium Chloride 30 meq/ Dextrose 1,015 ml @ 175 mls/hr Q5H48M IV 08/16/20 19:00 09/15/20 18:59 08/17/20 11:31 Assessment/Plan Assessment/Plan Pulmonary Progress Note HPI: Patient is an 85-year-old [facility] Resident with past medical 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 Developed hypoxia after admission, currently on RA. ID following. The patient himself is not able to give any history. Past Medical History: Schizophrenia. Type 2 diabetes mellitus. Hypertensive cardiovascular disease. Gastroesophageal reflux disease. Status post gastrostomy tube, which has been pulled recently Dysphagia. Benign prostatic hypertrophy. Medications noted Allergies: Vancomycin: No known drug allergies. Improved O2 requirements Objective: Vital Signs Noted PE: Deferred r/o Covid 19 Laboratory noted CXR:noted - Pulmonary infiltrates Assessment: Covid Pneumonia, possible Sepsis Hypoxic Respiratory Failure Severe volume depletion Severe hypernatremia Schizophrenia. Type 2 diabetes mellitus. Hypertensive cardiovascular disease. Gastroesophageal reflux disease. Status post gastrostomy tube, which has been pulled recently Dysphagia. Benign prostatic hypertrophy Plan: Continue Antibiotics- ID consulted O2 PRN IVF Bronchodilators PPX Monitor labs Zain Cortes MD Aug 18, 2020 21:55
[2020-08-19] VITALS: BP 141/83
[2020-08-19] MEDS: Piperacillin/Tazobactam 3.375 GM in NS 110 ML IVPB SCH ×3 (01:02→16:53)
[2020-08-19 04:00] VITALS: BP 139/86
[2020-08-19 08:00] VITALS: BP 162/81
[2020-08-19] MEDS: dexAMETHasone 10mg/ml Inj IV SCH (08:45)
[2020-08-19] MEDS: Heparin 5000 units/ml inj SUBQ SCH ×2 (08:46→21:50)
[2020-08-19 12:00] VITALS: BP 123/63
--- NOTE | 2020-08-19 12:12 | General Progress Note ---
Subjective Allergies: Coded Allergies: VANCOMYCIN (Verified Allergy, Unknown, 08/16/20) Subjective Confused Objective Last 24 Hour Vital Signs Date Time Temp Pulse Resp B/P (MAP) Pulse Ox O2 Delivery O2 Flow Rate FiO2 08/19/20 12:00 97.4 58 18 123/63 (83) 97 08/19/20 09:00 Room Air 08/19/20 08:00 97.0 79 18 162/81 (108) 98 08/19/20 04:00 98.5 74 20 139/86 (103) 95 08/19/20 00:00 98.9 71 20 141/83 (102) 96 08/18/20 21:44 Room Air 08/18/20 20:00 98.4 72 20 135/93 (107) 96 08/18/20 16:00 97.7 64 18 139/76 (97) 96 Height (Feet): 5 Height (Inches): 6.00 Weight (Pounds): 135 Objective CV RR Lungs CTA Abd SNT. BS + E No CCE Assessment/Plan Assessment/Plan: Severe volume depletion, hypernatremia ---hypotonic IVF ---improving parameters. Holding SNF meds. Na 167!!! m/p DI!!!! No lab results!!! Steven Dee MD Aug 19, 2020 12:12
[2020-08-19] MEDS ORDERED: Varibar Honey 250ml MC PRN (12:15)
[2020-08-19] MEDS ORDERED: Varibar Pudding 230ml MC PRN (12:15)
[2020-08-19] MEDS ORDERED: Varibar Nectar 240ml MC PRN (12:15)
[2020-08-19] MEDS ORDERED: Varibar Thin Liquid powder 148gm MC PRN (12:15)
--- NOTE | 2020-08-19 15:32 | Pulmonology Progress Note ---
Subjective ROS Limited/Unobtainable: Yes Allergies: Coded Allergies: VANCOMYCIN (Verified Allergy, Unknown, 08/16/20) Objective Last 24 Hour Vital Signs Date Time Temp Pulse Resp B/P (MAP) Pulse Ox O2 Delivery O2 Flow Rate FiO2 08/19/20 12:00 97.4 58 18 123/63 (83) 97 08/19/20 09:00 Room Air 08/19/20 08:00 97.0 79 18 162/81 (108) 98 08/19/20 04:00 98.5 74 20 139/86 (103) 95 08/19/20 00:00 98.9 71 20 141/83 (102) 96 08/18/20 21:44 Room Air 08/18/20 20:00 98.4 72 20 135/93 (107) 96 08/18/20 16:00 97.7 64 18 139/76 (97) 96 Current Medications Medications (Trade) Dose Ordered Sig/Deepali Route PRN Reason Start Time Stop Time Status Last Admin Dose Admin Acetaminophen (Tylenol) 650 mg Q4H PRN ORAL Temp >100.5 08/16/20 17:00 09/15/20 16:59 Albuterol Sulfate (Proventil) 2.5 mg Q4H PRN HHN Shortness of Breath 08/16/20 19:15 08/21/20 19:14 Barium Sulfate (Varibar Honey) 250 ml NOW PRN MC RAD 08/19/20 12:15 08/22/20 12:11 Barium Sulfate (Varibar [place]) 240 ml NOW PRN MC RAD 08/19/20 12:15 08/22/20 12:11 Barium Sulfate (Varibar Pudding) 230 ml NOW PRN MC RAD 08/19/20 12:15 08/22/20 12:11 Barium Sulfate (Varibar Thin Liquid powder) 148 gm NOW PRN MC RAD 08/19/20 12:15 08/22/20 12:11 Dexamethasone Sodium Phosphate (Decadron 10mg/ ml Inj) 6 mg DAILY IV 08/16/20 19:15 08/25/20 09:01 08/19/20 08:45 Dextrose (Dextrose 50%) 25 ml Q30M PRN IV Hypoglycemia 08/16/20 19:15 11/14/20 19:14 Dextrose (Dextrose 50%) 50 ml Q30M PRN IV Hypoglycemia 08/16/20 19:15 11/14/20 19:14 Heparin Sodium (Porcine) (Heparin 5000 units/ml) 5,000 units EVERY 12 HOURS SUBQ 08/16/20 21:00 09/30/20 20:59 08/19/20 08:46 Piperacillin Sod/ Tazobactam Sod 3.375 gm/Sodium Chloride 110 ml @ 27.5 mls/hr Q8H IVPB 08/18/20 17:00 08/25/20 16:59 08/19/20 08:49 Potassium Chloride 30 meq/ Dextrose 1,015 ml @ 175 mls/hr Q5H48M IV 08/16/20 19:00 09/15/20 18:59 08/19/20 12:34 Assessment/Plan Assessment/Plan Pulmonary Progress Note HPI: Patient is an 85-year-old Long-Term Resident with past medical 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 Developed hypoxia after admission, currently on RA. ID following. The patient himself is not able to give any history. Past Medical History: Schizophrenia. Type 2 diabetes mellitus. Hypertensive cardiovascular disease. Gastroesophageal reflux disease. Status post gastrostomy tube, which has been pulled recently Dysphagia. Benign prostatic hypertrophy. Medications noted Allergies: Vancomycin: No known drug allergies. Improved O2 requirements Objective: Vital Signs Noted PE: Deferred r/o Covid 19 Laboratory noted CXR:noted - Pulmonary infiltrates Assessment: Covid Pneumonia, possible Sepsis Hypoxic Respiratory Failure Severe volume depletion Severe hypernatremia Schizophrenia. Type 2 diabetes mellitus. Hypertensive cardiovascular disease. Gastroesophageal reflux disease. Status post gastrostomy tube, which has been pulled recently Dysphagia. Benign prostatic hypertrophy Plan: Continue Antibiotics- ID consulted O2 PRN IVF Bronchodilators PPX Monitor labs Zain Cortes MD Aug 19, 2020 15:32
[2020-08-19 16:00] VITALS: BP 130/77
--- NOTE | 2020-08-19 16:52 | Infectious Diseases Prog Note ---
Assessment/Plan Assessment/Plan A; 1. Urinary tract infection. 2. He has previous history of COVID19, but currently is negative. 3. Diabetes. 4. Hypertension. 5. Schizophrenia. 6. Hypernatremia PLAN: 1. Continue Zosyn. 2. We will f/u urine culture Subjective ROS Limited/Unobtainable: Yes Neurologic: Reports: confusion, other - on restraint Allergies: Coded Allergies: VANCOMYCIN (Verified Allergy, Unknown, 08/16/20) Objective Last 24 Hour Vital Signs Date Time Temp Pulse Resp B/P (MAP) Pulse Ox O2 Delivery O2 Flow Rate FiO2 08/19/20 16:00 97.0 60 19 130/77 (94) 98 08/19/20 12:00 97.4 58 18 123/63 (83) 97 08/19/20 09:00 Room Air 08/19/20 08:00 97.0 79 18 162/81 (108) 98 08/19/20 04:00 98.5 74 20 139/86 (103) 95 08/19/20 00:00 98.9 71 20 141/83 (102) 96 08/18/20 21:44 Room Air 08/18/20 20:00 98.4 72 20 135/93 (107) 96 Height (Feet): 5 Height (Inches): 6.00 Weight (Pounds): 135 General Appearance: no acute distress HEENT: other - dry mouth Respiratory/Chest: lungs clear Cardiovascular: normal rate Abdomen: soft, non tender Extremities: no edema Neurologic/Psychiatric: other - sleeping Current Medications Medications (Trade) Dose Ordered Sig/Deepali Route PRN Reason Start Time Stop Time Status Last Admin Dose Admin Acetaminophen (Tylenol) 650 mg Q4H PRN ORAL Temp >100.5 08/16/20 17:00 09/15/20 16:59 Albuterol Sulfate (Proventil) 2.5 mg Q4H PRN HHN Shortness of Breath 08/16/20 19:15 08/21/20 19:14 Barium Sulfate (Varibar Honey) 250 ml NOW PRN MC RAD 08/19/20 12:15 08/22/20 12:11 Barium Sulfate (Varibar [place]) 240 ml NOW PRN MC RAD 08/19/20 12:15 08/22/20 12:11 Barium Sulfate (Varibar Pudding) 230 ml NOW PRN MC RAD 08/19/20 12:15 08/22/20 12:11 Barium Sulfate (Varibar Thin Liquid powder) 148 gm NOW PRN RAD 08/19/20 12:15 08/22/20 12:11 Dexamethasone Sodium Phosphate (Decadron 10mg/ ml Inj) 6 mg DAILY IV 08/16/20 19:15 08/25/20 09:01 08/19/20 08:45 Dextrose (Dextrose 50%) 25 ml Q30M PRN IV Hypoglycemia 08/16/20 19:15 11/14/20 19:14 Dextrose (Dextrose 50%) 50 ml Q30M PRN IV Hypoglycemia 08/16/20 19:15 11/14/20 19:14 Heparin Sodium (Porcine) (Heparin 5000 units/ml) 5,000 units EVERY 12 HOURS SUBQ 08/16/20 21:00 09/30/20 20:59 08/19/20 08:46 Piperacillin Sod/ Tazobactam Sod 3.375 gm/Sodium Chloride 110 ml @ 27.5 mls/hr Q8H IVPB 08/18/20 17:00 08/25/20 16:59 08/19/20 08:49 Potassium Chloride 30 meq/ Dextrose 1,015 ml @ 175 mls/hr Q5H48M IV 08/16/20 19:00 09/15/20 18:59 08/19/20 12:34 Dimitri Fraser MD Aug 19, 2020 16:52
[2020-08-19 20:00] VITALS: BP 158/84
[2020-08-20] VITALS: BP 149/79
[2020-08-20] MEDS: Piperacillin/Tazobactam 3.375 GM in NS 110 ML IVPB SCH ×2 (00:31→08:54)
[2020-08-20 04:00] VITALS: BP 151/69
[2020-08-20 08:00] VITALS: BP 149/87
--- NOTE | 2020-08-20 08:40 | General Progress Note ---
Subjective Allergies: Coded Allergies: VANCOMYCIN (Verified Allergy, Unknown, 08/16/20) Subjective Confused Objective Last 24 Hour Vital Signs Date Time Temp Pulse Resp B/P (MAP) Pulse Ox O2 Delivery O2 Flow Rate FiO2 08/20/20 04:00 96.7 70 18 151/69 (96) 93 08/20/20 00:00 98.2 69 18 149/79 (102) 95 08/19/20 21:00 Room Air 08/19/20 20:00 97.7 61 18 158/84 (108) 96 08/19/20 16:00 97.0 60 19 130/77 (94) 98 08/19/20 12:00 97.4 58 18 123/63 (83) 97 08/19/20 09:00 Room Air Intake and Output 08/19/20 08/20/20 19:00 07:00 Intake Total 792.5 ml 700 ml Output Total 300 ml Balance 492.5 ml 700 ml Intake Oral 480 ml IV Total 312.5 ml 700 ml Output Urine Total 300 ml Height (Feet): 5 Height (Inches): 6.00 Weight (Pounds): 135 Objective CV RR Lungs CTA Abd SNT. BS + E No CCE Assessment/Plan Assessment/Plan: Severe volume depletion, hypernatremia ---hypotonic IVF ---improving parameters. Holding SNF meds. Na 167!!! m/p DI!!!! No lab results since 08/18!!! DW funeral assistantSteven Hobbs MD Aug 20, 2020 08:40
[2020-08-20] MEDS: Heparin 5000 units/ml inj SUBQ SCH ×2 (08:54→21:00)
[2020-08-20] MEDS: dexAMETHasone 10mg/ml Inj IV SCH (08:54)
[2020-08-20 09:50] LABS: CALCIUM 9.3 MG/DL (8.5-10.1); CREATININE 1.7 MG/DL (0.55-1.30); POTASSIUM 4.3 MMOL/L (3.5-5.1)
[2020-08-20 12:00] VITALS: BP 155/60
[2020-08-20] MEDS ORDERED: Levofloxacin 750mg tab ORAL SCH (15:30)
[2020-08-20 16:00] VITALS: BP 136/73
[2020-08-20 20:00] VITALS: BP 134/71
--- NOTE | 2020-08-20 20:30 | Pulmonology Progress Note ---
Subjective ROS Limited/Unobtainable: Yes Allergies: Coded Allergies: VANCOMYCIN (Verified Allergy, Unknown, 08/16/20) Objective Last 24 Hour Vital Signs Date Time Temp Pulse Resp B/P (MAP) Pulse Ox O2 Delivery O2 Flow Rate FiO2 08/20/20 16:00 50 18 136/73 (94) 97 08/20/20 12:00 97.7 56 19 155/60 (91) 95 08/20/20 09:00 Room Air 08/20/20 08:00 97.5 64 18 149/87 (107) 96 08/20/20 04:00 96.7 70 18 151/69 (96) 93 08/20/20 00:00 98.2 69 18 149/79 (102) 95 08/19/20 21:00 Room Air Intake and Output 08/19/20 08/20/20 19:00 07:00 Intake Total 792.5 ml 700 ml Output Total 300 ml Balance 492.5 ml 700 ml Intake Oral 480 ml IV Total 312.5 ml 700 ml Output Urine Total 300 ml Laboratory Tests 08/20/20 09:00: Sodium Level 161*H, Potassium Level 4.3, Chloride Level 128H, Carbon Dioxide Level 25, Anion Gap 7, Blood Urea Nitrogen 41H, Creatinine 1.7H, Estimat Glomerular Filtration Rate 38.4, Glucose Level 199H, Calcium Level 9.3, Magnesium Level 2.4 Current Medications Medications (Trade) Dose Ordered Sig/Deepali Route PRN Reason Start Time Stop Time Status Last Admin Dose Admin Acetaminophen (Tylenol) 650 mg Q4H PRN ORAL Temp >100.5 08/16/20 17:00 09/15/20 16:59 Albuterol Sulfate (Proventil) 2.5 mg Q4H PRN HHN Shortness of Breath 08/16/20 19:15 08/21/20 19:14 Barium Sulfate (Varibar Honey) 250 ml NOW PRN MC RAD 08/19/20 12:15 08/22/20 12:11 Barium Sulfate (Varibar [place]) 240 ml NOW PRN MC RAD 08/19/20 12:15 08/22/20 12:11 Barium Sulfate (Varibar Pudding) 230 ml NOW PRN MC RAD 08/19/20 12:15 08/22/20 12:11 Barium Sulfate (Varibar Thin Liquid powder) 148 gm NOW PRN MC RAD 08/19/20 12:15 08/22/20 12:11 Dexamethasone Sodium Phosphate (Decadron 10mg/ ml Inj) 6 mg DAILY IV 08/16/20 19:15 08/25/20 09:01 08/20/20 08:54 Dextrose (Dextrose 50%) 25 ml Q30M PRN IV Hypoglycemia 08/16/20 19:15 11/14/20 19:14 Dextrose (Dextrose 50%) 50 ml Q30M PRN IV Hypoglycemia 08/16/20 19:15 11/14/20 19:14 Heparin Sodium (Porcine) (Heparin 5000 units/ml) 5,000 units EVERY 12 HOURS SUBQ 08/16/20 21:00 09/30/20 20:59 08/20/20 08:54 Potassium Chloride 30 meq/ Dextrose 1,015 ml @ 175 mls/hr Q5H48M IV 08/16/20 19:00 09/15/20 18:59 08/20/20 15:58 Assessment/Plan Assessment/Plan Pulmonary Progress Note HPI: Patient is an 85-year-old [facility] Resident with past medical 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 Developed hypoxia after admission, currently on RA. ID following. The patient himself is not able to give any history. Past Medical History: Schizophrenia. Type 2 diabetes mellitus. Hypertensive cardiovascular disease. Gastroesophageal reflux disease. Status post gastrostomy tube, which has been pulled recently Dysphagia. Benign prostatic hypertrophy. Medications noted Allergies: Vancomycin: No known drug allergies. On RA Objective: Vital Signs Noted PE: Deferred r/o Covid 19 Laboratory noted CXR:noted - Pulmonary infiltrates Assessment: Covid Pneumonia, possible Sepsis Hypoxic Respiratory Failure Severe volume depletion Severe hypernatremia Schizophrenia. Type 2 diabetes mellitus. Hypertensive cardiovascular disease. Gastroesophageal reflux disease. Status post gastrostomy tube, which has been pulled recently Dysphagia. Benign prostatic hypertrophy Plan: Continue Antibiotics- ID consulted O2 PRN IVF Bronchodilators PPX Monitor labs Zain Cortes MD Aug 20, 2020 20:30
[2020-08-21 04:00] VITALS: BP 135/78
[2020-08-21 08:00] VITALS: BP 154/66
[2020-08-21] MEDS: dexAMETHasone 10mg/ml Inj IV SCH (08:59)
[2020-08-21] MEDS: Heparin 5000 units/ml inj SUBQ SCH ×2 (08:59→21:18)
[2020-08-21 11:45] LABS: CALCIUM 9.1 MG/DL (8.5-10.1); CREATININE 1.3 MG/DL (0.55-1.30); POTASSIUM 4.7 MMOL/L (3.5-5.1)
[2020-08-21 12:00] VITALS: BP 125/64
--- NOTE | 2020-08-21 12:11 | General Progress Note ---
Subjective Allergies: Coded Allergies: VANCOMYCIN (Verified Allergy, Unknown, 08/16/20) Subjective Confused Objective Last 24 Hour Vital Signs Date Time Temp Pulse Resp B/P (MAP) Pulse Ox O2 Delivery O2 Flow Rate FiO2 08/21/20 09:37 85 18 98 Room Air 08/21/20 09:00 Room Air 08/21/20 08:00 97.8 42 18 154/66 (95) 100 08/21/20 04:00 98.9 80 18 135/78 (97) 97 08/20/20 21:00 Room Air 08/20/20 20:00 98.2 71 18 134/71 (92) 98 08/20/20 16:00 50 18 136/73 (94) 97 Intake and Output 08/20/20 08/21/20 19:00 07:00 Intake Total 995 ml 1925 ml Output Total 500 ml Balance 495 ml 1925 ml Intake Oral 120 ml IV Total 875 ml 1925 ml Output Urine Total 500 ml Laboratory Tests 08/21/20 08:40: Sodium Level 151#H, Potassium Level 4.7, Chloride Level 119H, Carbon Dioxide [place] 22, Anion Gap 10, Blood Urea Nitrogen 29H, Creatinine 1.3, Estimat Glomerular Filtration Rate 52.3, Glucose Level 274H, Calcium Level 9.1 Height (Feet): 5 Height (Inches): 6.00 Weight (Pounds): 135 Objective CV RR Lungs CTA Abd SNT. BS + E No CCE Assessment/Plan Assessment/Plan: Severe volume depletion, hypernatremia ---hypotonic IVF ---improving parameters. Holding SNF meds. Na down to 151 Steven Dee MD Aug 21, 2020 12:11
--- NOTE | 2020-08-21 15:55 | Pulmonology Progress Note ---
Subjective ROS Limited/Unobtainable: Yes Allergies: Coded Allergies: VANCOMYCIN (Verified Allergy, Unknown, 08/16/20) Objective Last 24 Hour Vital Signs Date Time Temp Pulse Resp B/P (MAP) Pulse Ox O2 Delivery O2 Flow Rate FiO2 08/21/20 12:00 98.0 58 18 125/64 (84) 97 08/21/20 09:37 85 18 98 Room Air 08/21/20 09:00 Room Air 08/21/20 08:00 97.8 42 18 154/66 (95) 100 08/21/20 04:00 98.9 80 18 135/78 (97) 97 08/20/20 21:00 Room Air 08/20/20 20:00 98.2 71 18 134/71 (92) 98 08/20/20 16:00 50 18 136/73 (94) 97 Intake and Output 08/20/20 08/21/20 19:00 07:00 Intake Total 995 ml 1925 ml Output Total 500 ml Balance 495 ml 1925 ml Intake Oral 120 ml IV Total 875 ml 1925 ml Output Urine Total 500 ml Laboratory Tests 08/21/20 08:40: Sodium Level 151#H, Potassium Level 4.7, Chloride Level 119H, Carbon Dioxide Level 22, Anion Gap 10, Blood Urea Nitrogen 29H, Creatinine 1.3, Estimat Glomerular Filtration Rate 52.3, Glucose Level 274H, Calcium Level 9.1 Current Medications Medications (Trade) Dose Ordered Sig/Deepali Route PRN Reason Start Time Stop Time Status Last Admin Dose Admin Acetaminophen (Tylenol) 650 mg Q4H PRN ORAL Temp >100.5 08/16/20 17:00 09/15/20 16:59 Albuterol Sulfate (Proventil) 2.5 mg Q4H PRN HHN Shortness of Breath 08/16/20 19:15 08/21/20 19:14 Barium Sulfate (Varibar Honey) 250 ml NOW PRN MC RAD 08/19/20 12:15 08/22/20 12:11 Barium Sulfate (Varibar [place]) 240 ml NOW PRN MC RAD 08/19/20 12:15 08/22/20 12:11 Barium Sulfate (Varibar Pudding) 230 ml NOW PRN MC RAD 08/19/20 12:15 08/22/20 12:11 Barium Sulfate (Varibar Thin Liquid powder) 148 gm NOW PRN MC RAD 08/19/20 12:15 08/22/20 12:11 Dexamethasone Sodium Phosphate (Decadron 10mg/ ml Inj) 6 mg DAILY IV 08/16/20 19:15 08/25/20 09:01 08/21/20 08:59 Dextrose (Dextrose 50%) 25 ml Q30M PRN IV Hypoglycemia 08/16/20 19:15 11/14/20 19:14 Dextrose (Dextrose 50%) 50 ml Q30M PRN IV Hypoglycemia 08/16/20 19:15 11/14/20 19:14 Heparin Sodium (Porcine) (Heparin 5000 units/ml) 5,000 units EVERY 12 HOURS SUBQ 08/16/20 21:00 09/30/20 20:59 08/21/20 08:59 Potassium Chloride 30 meq/ Dextrose 1,015 ml @ 175 mls/hr Q5H48M IV 08/16/20 19:00 09/15/20 18:59 08/21/20 10:08 Assessment/Plan Assessment/Plan Pulmonary Progress Note HPI: 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 Developed hypoxia after admission, currently on RA. ID following. The patient himself is not able to give any history. Past Medical History: Schizophrenia. Type 2 diabetes mellitus. Hypertensive cardiovascular disease. Gastroesophageal reflux disease. Status post gastrostomy tube, which has been pulled recently Dysphagia. Benign prostatic hypertrophy. Medications noted Allergies: Vancomycin: No known drug allergies. Stable Pulmonary status-on RA Objective: Vital Signs Noted PE: Deferred r/o Covid 19 Laboratory noted CXR:noted - Pulmonary infiltrates Assessment: Covid Pneumonia, possible Sepsis Hypoxic Respiratory Failure Severe volume depletion Severe hypernatremia Schizophrenia. Type 2 diabetes mellitus. Hypertensive cardiovascular disease. Gastroesophageal reflux disease. Status post gastrostomy tube, which has been pulled recently Dysphagia. Benign prostatic hypertrophy Plan: Continue Antibiotics- ID consulted O2 PRN IVF Bronchodilators PPX Monitor labs Zain Cortes MD Aug 21, 2020 15:55
[2020-08-21 16:00] VITALS: BP 130/71
[2020-08-21 20:00] VITALS: BP 146/78
--- NOTE | 2020-08-21 23:21 | Diagnostic Imaging Report ---
EXAM: US Duplex Bilateral Lower Extremities Veins CLINICAL HISTORY: HPI 85M PMHx DM HTN HLD CHF CKD BPH, GERD, chronic deconditioning, atrophy, dysphagia, schizophrenia, anxiety, electrolyte disturbance,BIBA from [facility] for decreased oral intake and altered mental status since yesterday. History is limited secondary to patient's clinical condition. PMD [place] The patient's symptoms were gradual onset, severity was moderate, duration since 1 day. Quality: Generally weak TECHNIQUE: Real-time duplex ultrasound scan of the bilateral lower extremity veins integrating B-mode two-dimensional vascular structure, Doppler spectral analysis, color flow Doppler imaging and compression. COMPARISON: None FINDINGS: Right deep veins: Unremarkable. No DVT in the right common femoral, femoral, proximal deep femoral or popliteal veins. The veins demonstrate normal color flow, are normally compressible, with normal phasic flow and/or augmentation response. Right superficial veins: Unremarkable. No thrombus in the visualized right great saphenous vein. Left deep veins: Unremarkable. No DVT in the left common femoral, femoral, proximal deep femoral or popliteal veins. The veins demonstrate normal color flow, are normally compressible, with normal phasic flow and/or augmentation response. Left superficial veins: Unremarkable. No thrombus in the visualized left great saphenous vein. Soft tissues: No acute findings. No popliteal cyst. IMPRESSION: No deep venous thrombosis identified in either lower extremity.
[2020-08-22] VITALS: BP 158/86
[2020-08-22 04:00] VITALS: BP 160/90
[2020-08-22 08:00] VITALS: BP 168/82
[2020-08-22] MEDS: dexAMETHasone 10mg/ml Inj IV SCH (08:40)
[2020-08-22] MEDS: Heparin 5000 units/ml inj SUBQ SCH ×2 (08:48→20:25)
[2020-08-22 09:04] LABS: CALCIUM 9.7 MG/DL (8.5-10.1); CREATININE 1.2 MG/DL (0.55-1.30); POTASSIUM 4.7 MMOL/L (3.5-5.1)
--- NOTE | 2020-08-22 11:54 | Infectious Diseases Prog Note ---
Assessment/Plan Assessment/Plan antibiotics : none A 1. Urinary tract infection. 2. COVID-19 negative. 3. Diabetes. 4. Hypertension. 5. Schizophrenia. P 1. d/c dexamethasone Subjective ROS Limited/Unobtainable: Yes Allergies: Coded Allergies: VANCOMYCIN (Verified Allergy, Unknown, 08/16/20) Objective Last 24 Hour Vital Signs Date Time Temp Pulse Resp B/P (MAP) Pulse Ox O2 Delivery O2 Flow Rate FiO2 08/22/20 08:00 Room Air 08/22/20 08:00 96.7 71 20 168/82 (110) 98 08/22/20 04:00 98.0 75 20 160/90 (113) 95 08/22/20 00:00 97.9 72 20 158/86 (110) 96 08/21/20 21:00 Room Air 08/21/20 20:00 98.0 85 18 146/78 (100) 97 08/21/20 16:00 97.9 61 18 130/71 (90) 97 08/21/20 12:00 98.0 58 18 125/64 (84) 97 Height (Feet): 5 Height (Inches): 6.00 Weight (Pounds): 135 Respiratory/Chest: lungs clear Cardiovascular: normal rate, regular rhythm, no gallop/murmur Abdomen: soft, non tender Extremities: no edema Laboratory Tests Test 08/22/20 05:35 Sodium Level 146 MMOL/L (136-145) H Potassium Level 4.7 MMOL/L (3.5-5.1) Chloride Level 115 MMOL/L (98-107) H Carbon Dioxide Level 19 MMOL/L (21-32) L Anion Gap 12 mmol/L (5-15) Blood Urea Nitrogen 24 mg/dL (7-18) H Creatinine 1.2 MG/DL (0.55-1.30) Estimat Glomerular Filtration Rate 57.4 mL/min (>60) Glucose Level 228 MG/DL (74-106) H Calcium Level 9.7 MG/DL (8.5-10.1) Current Medications Medications (Trade) Dose Ordered Sig/Deepali Route PRN Reason Start Time Stop Time Status Last Admin Dose Admin Acetaminophen (Tylenol) 650 mg Q4H PRN ORAL Temp >100.5 08/16/20 17:00 09/15/20 16:59 Barium Sulfate (Varibar Honey) 250 ml NOW PRN MC RAD 08/19/20 12:15 08/22/20 12:11 Barium Sulfate (Varibar [place]) 240 ml NOW PRN MC RAD 08/19/20 12:15 08/22/20 12:11 Barium Sulfate (Varibar Pudding) 230 ml NOW PRN MC RAD 08/19/20 12:15 08/22/20 12:11 Barium Sulfate (Varibar Thin Liquid powder) 148 gm NOW PRN MC RAD 08/19/20 12:15 08/22/20 12:11 Dexamethasone Sodium Phosphate (Decadron 10mg/ ml Inj) 6 mg DAILY IV 08/16/20 19:15 08/25/20 09:01 08/22/20 08:40 Dextrose (Dextrose 50%) 25 ml Q30M PRN IV Hypoglycemia 08/16/20 19:15 11/14/20 19:14 Dextrose (Dextrose 50%) 50 ml Q30M PRN IV Hypoglycemia 08/16/20 19:15 11/14/20 19:14 Heparin Sodium (Porcine) (Heparin 5000 units/ml) 5,000 units EVERY 12 HOURS SUBQ 08/16/20 21:00 09/30/20 20:59 08/22/20 08:48 Potassium Chloride 30 meq/ Dextrose 1,015 ml @ 175 mls/hr Q5H48M IV 08/22/20 07:00 09/21/20 06:59 08/22/20 07:23 Dorie Chaudhary MD Aug 22, 2020 11:54
[2020-08-22 12:00] VITALS: BP 152/91
--- NOTE | 2020-08-22 13:59 | General Progress Note ---
Subjective Allergies: Coded Allergies: VANCOMYCIN (Verified Allergy, Unknown, 08/16/20) Subjective Confused Objective Last 24 Hour Vital Signs Date Time Temp Pulse Resp B/P (MAP) Pulse Ox O2 Delivery O2 Flow Rate FiO2 08/22/20 12:00 97.0 79 18 152/91 (111) 96 08/22/20 08:00 Room Air 08/22/20 08:00 96.7 71 20 168/82 (110) 98 08/22/20 04:00 98.0 75 20 160/90 (113) 95 08/22/20 00:00 97.9 72 20 158/86 (110) 96 08/21/20 21:00 Room Air 08/21/20 20:00 98.0 85 18 146/78 (100) 97 08/21/20 16:00 97.9 61 18 130/71 (90) 97 Intake and Output 08/21/20 08/22/20 19:00 07:00 Intake Total 1225 ml Balance 1225 ml IV Total 1225 ml Laboratory Tests 08/22/20 05:35: Sodium Level 146H, Potassium Level 4.7, Chloride Level 115H, Carbon Dioxide Level 19L, Anion Gap 12, Blood Urea Nitrogen 24H, Creatinine 1.2, Estimat Glomerular Filtration Rate 57.4, Glucose Level 228H, Calcium Level 9.7 Height (Feet): 5 Height (Inches): 6.00 Weight (Pounds): 135 Objective CV RR Lungs CTA Abd SNT. BS + E No CCE Assessment/Plan Assessment/Plan: Severe volume depletion, hypernatremia ---hypotonic IVF ---improving parameters. Holding SNF meds. Na down to 149. Continue IVF rehydration. Steven Dee MD Aug 22, 2020 13:59
[2020-08-22 16:00] VITALS: BP 166/90
--- NOTE | 2020-08-22 18:33 | Pulmonology Progress Note ---
Subjective ROS Limited/Unobtainable: Yes Allergies: Coded Allergies: VANCOMYCIN (Verified Allergy, Unknown, 08/16/20) Objective Last 24 Hour Vital Signs Date Time Temp Pulse Resp B/P (MAP) Pulse Ox O2 Delivery O2 Flow Rate FiO2 08/22/20 16:00 97.3 80 18 166/90 (115) 95 08/22/20 12:00 97.0 79 18 152/91 (111) 96 08/22/20 08:00 Room Air 08/22/20 08:00 96.7 71 20 168/82 (110) 98 08/22/20 04:00 98.0 75 20 160/90 (113) 95 08/22/20 00:00 97.9 72 20 158/86 (110) 96 08/21/20 21:00 Room Air 08/21/20 20:00 98.0 85 18 146/78 (100) 97 Intake and Output 08/21/20 08/22/20 19:00 07:00 Intake Total 1225 ml Balance 1225 ml IV Total 1225 ml Laboratory Tests 08/22/20 05:35: Sodium Level 146H, Potassium Level 4.7, Chloride Level 115H, Carbon Dioxide Level 19L, Anion Gap 12, Blood Urea Nitrogen 24H, Creatinine 1.2, Estimat Glomerular Filtration Rate 57.4, Glucose Level 228H, Calcium Level 9.7 Current Medications Medications (Trade) Dose Ordered Sig/Deepali Route PRN Reason Start Time Stop Time Status Last Admin Dose Admin Acetaminophen (Tylenol) 650 mg Q4H PRN ORAL Temp >100.5 08/16/20 17:00 09/15/20 16:59 Dextrose (Dextrose 50%) 25 ml Q30M PRN IV Hypoglycemia 08/16/20 19:15 11/14/20 19:14 Dextrose (Dextrose 50%) 50 ml Q30M PRN IV Hypoglycemia 08/16/20 19:15 11/14/20 19:14 Heparin Sodium (Porcine) (Heparin 5000 units/ml) 5,000 units EVERY 12 HOURS SUBQ 08/16/20 21:00 09/30/20 20:59 08/22/20 08:48 Potassium Chloride 30 meq/ Dextrose 1,015 ml @ 100 mls/hr Q10H9M IV 08/22/20 07:00 09/21/20 06:59 08/22/20 07:23 Assessment/Plan Assessment/Plan Pulmonary Progress Note HPI: Patient is an 85-year-old [facility] Resident with past medical 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 Developed hypoxia after admission, currently on RA. ID following. The patient himself is not able to give any history. Past Medical History: Schizophrenia. Type 2 diabetes mellitus. Hypertensive cardiovascular disease. Gastroesophageal reflux disease. Status post gastrostomy tube, which has been pulled recently Dysphagia. Benign prostatic hypertrophy. Medications noted Allergies: Vancomycin: No known drug allergies. Stable Pulmonary status-on RA Objective: Vital Signs Noted PE: Deferred r/o Covid 19 Laboratory noted CXR:noted - Pulmonary infiltrates Assessment: Covid Pneumonia, possible Sepsis Hypoxic Respiratory Failure Severe volume depletion Severe hypernatremia Schizophrenia. Type 2 diabetes mellitus. Hypertensive cardiovascular disease. Gastroesophageal reflux disease. Status post gastrostomy tube, which has been pulled recently Dysphagia. Benign prostatic hypertrophy Plan: Continue Antibiotics- ID consulted O2 PRN IVF Bronchodilators PPX Monitor labs Zain Cortes MD Aug 22, 2020 18:33
[2020-08-22 20:00] VITALS: BP 179/84
[2020-08-23] VITALS (7 sets, daily range): BP systolic 151–176; BP diastolic 80–92
[2020-08-23] MEDS: Heparin 5000 units/ml inj SUBQ SCH ×2 (09:24→21:26)
--- NOTE | 2020-08-23 10:55 | Infectious Diseases Prog Note ---
Assessment/Plan Assessment/Plan A; 1. Urinary tract infection treated 2. He has previous history of COVID19, but currently is negative. 3. Diabetes. 4. Hypertension. 5. Schizophrenia. 6. Hypernatremia PLAN: 1. Observe off of antibiotic Subjective ROS Limited/Unobtainable: Yes Constitutional: Denies: fever Neurologic: Reports: confusion, other - on restraint Allergies: Coded Allergies: VANCOMYCIN (Verified Allergy, Unknown, 08/16/20) Objective Last 24 Hour Vital Signs Date Time Temp Pulse Resp B/P (MAP) Pulse Ox O2 Delivery O2 Flow Rate FiO2 08/23/20 09:00 Room Air 08/23/20 08:00 97.4 62 18 152/85 (107) 95 08/23/20 04:00 97.8 65 18 154/87 (109) 96 08/23/20 00:00 98.0 65 18 151/82 (105) 97 08/22/20 21:00 Room Air 08/22/20 20:00 97.7 95 18 179/84 (115) 96 08/22/20 16:00 97.3 80 18 166/90 (115) 95 08/22/20 12:00 97.0 79 18 152/91 (111) 96 Height (Feet): 5 Height (Inches): 6.00 Weight (Pounds): 135 HEENT: mucous membranes moist Respiratory/Chest: lungs clear Cardiovascular: normal rate Abdomen: soft, non tender Extremities: no edema Neurologic/Psychiatric: disoriented Current Medications Medications (Trade) Dose Ordered Sig/Deepali Route PRN Reason Start Time Stop Time Status Last Admin Dose Admin Acetaminophen (Tylenol) 650 mg Q4H PRN ORAL Temp >100.5 08/16/20 17:00 09/15/20 16:59 Dextrose (Dextrose 50%) 25 ml Q30M PRN IV Hypoglycemia 08/16/20 19:15 11/14/20 19:14 Dextrose (Dextrose 50%) 50 ml Q30M PRN IV Hypoglycemia 08/16/20 19:15 11/14/20 19:14 Heparin Sodium (Porcine) (Heparin 5000 units/ml) 5,000 units EVERY 12 HOURS SUBQ 08/16/20 21:00 09/30/20 20:59 08/23/20 09:24 Potassium Chloride 30 meq/ Dextrose 1,015 ml @ 100 mls/hr Q10H9M IV 08/22/20 07:00 09/21/20 06:59 08/22/20 22:20 Dimitri Fraser MD Aug 23, 2020 10:55
--- NOTE | 2020-08-23 13:51 | General Progress Note ---
Subjective Allergies: Coded Allergies: VANCOMYCIN (Verified Allergy, Unknown, 08/16/20) Subjective Confused Objective Last 24 Hour Vital Signs Date Time Temp Pulse Resp B/P (MAP) Pulse Ox O2 Delivery O2 Flow Rate FiO2 08/23/20 12:00 98.0 60 18 163/80 (107) 98 08/23/20 09:00 Room Air 08/23/20 08:00 97.4 62 18 152/85 (107) 95 08/23/20 04:00 97.8 65 18 154/87 (109) 96 08/23/20 00:00 98.0 65 18 151/82 (105) 97 08/22/20 21:00 Room Air 08/22/20 20:00 97.7 95 18 179/84 (115) 96 08/22/20 16:00 97.3 80 18 166/90 (115) 95 Intake and Output 08/22/20 08/23/20 19:00 07:00 Intake Total 1425 ml 700 ml Output Total 600 ml 400 ml Balance 825 ml 300 ml Intake Oral 800 ml IV Total 625 ml 700 ml Output Urine Total 600 ml 400 ml # Bowel Movements 1 1 Height (Feet): 5 Height (Inches): 6.00 Weight (Pounds): 135 Objective CV RR Lungs CTA Abd SNT. BS + E No CCE Assessment/Plan Assessment/Plan: Severe volume depletion, hypernatremia ---hypotonic IVF ---improving parameters. Holding SNF meds. Na down to 146. Continue IVF rehydration. DC IVF and recheck labs. Steven Dee MD Aug 23, 2020 13:51
--- NOTE | 2020-08-23 18:42 | Pulmonology Progress Note ---
Subjective ROS Limited/Unobtainable: Yes Constitutional: Denies: fever Allergies: Coded Allergies: VANCOMYCIN (Verified Allergy, Unknown, 08/16/20) Objective Last 24 Hour Vital Signs Date Time Temp Pulse Resp B/P (MAP) Pulse Ox O2 Delivery O2 Flow Rate FiO2 08/23/20 16:00 98.0 65 18 171/92 (118) 98 08/23/20 12:00 98.0 60 18 163/80 (107) 98 08/23/20 09:00 Room Air 08/23/20 08:00 97.4 62 18 152/85 (107) 95 08/23/20 04:00 97.8 65 18 154/87 (109) 96 08/23/20 00:00 98.0 65 18 151/82 (105) 97 08/22/20 21:00 Room Air 08/22/20 20:00 97.7 95 18 179/84 (115) 96 Intake and Output 08/22/20 08/23/20 19:00 07:00 Intake Total 1425 ml 700 ml Output Total 600 ml 400 ml Balance 825 ml 300 ml Intake Oral 800 ml IV Total 625 ml 700 ml Output Urine Total 600 ml 400 ml # Bowel Movements 1 1 Current Medications Medications (Trade) Dose Ordered Sig/Deepali Route PRN Reason Start Time Stop Time Status Last Admin Dose Admin Acetaminophen (Tylenol) 650 mg Q4H PRN ORAL Temp >100.5 08/16/20 17:00 09/15/20 16:59 Dextrose (Dextrose 50%) 25 ml Q30M PRN IV Hypoglycemia 08/16/20 19:15 11/14/20 19:14 Dextrose (Dextrose 50%) 50 ml Q30M PRN IV Hypoglycemia 08/16/20 19:15 11/14/20 19:14 Heparin Sodium (Porcine) (Heparin 5000 units/ml) 5,000 units EVERY 12 HOURS SUBQ 08/16/20 21:00 09/30/20 20:59 08/23/20 09:24 Potassium Chloride 30 meq/ Dextrose 1,015 ml @ 100 mls/hr Q10H9M IV 08/22/20 07:00 09/21/20 06:59 08/22/20 22:20 Assessment/Plan Assessment/Plan Pulmonary Progress Note HPI: 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 Developed hypoxia after admission, currently on RA. UTI noted - ID following. The patient himself is not able to give any history. Past Medical History: Schizophrenia. Type 2 diabetes mellitus. Hypertensive cardiovascular disease. Gastroesophageal reflux disease. Status post gastrostomy tube, which has been pulled recently Dysphagia. Benign prostatic hypertrophy. Medications noted Allergies: Vancomycin: No known drug allergies. 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 Type 2 diabetes mellitus. Hypertensive cardiovascular disease. Gastroesophageal reflux disease. Status post gastrostomy tube, which has been pulled recently Dysphagia. Benign prostatic hypertrophy Plan: Continue Antibiotics- ID consulted O2 PRN IVF Bronchodilators PPX Monitor labs Zain Cortes MD Aug 23, 2020 18:42
[2020-08-24] VITALS (7 sets, daily range): BP systolic 151–173; BP diastolic 73–85
[2020-08-24] MEDS: Heparin 5000 units/ml inj SUBQ SCH ×3 (09:54→21:00)
--- NOTE | 2020-08-24 11:51 | Infectious Diseases Prog Note ---
Assessment/Plan Assessment/Plan antibiotics : none A 1. Urinary tract infection. 2. COVID-19 negative. 3. Diabetes. 4. Hypertension. 5. Schizophrenia. P 1. observe off antibiotics Subjective ROS Limited/Unobtainable: Yes Allergies: Coded Allergies: VANCOMYCIN (Verified Allergy, Unknown, 08/16/20) Objective Last 24 Hour Vital Signs Date Time Temp Pulse Resp B/P (MAP) Pulse Ox O2 Delivery O2 Flow Rate FiO2 08/24/20 08:00 97.7 78 18 151/73 (99) 97 08/24/20 04:00 97.9 62 18 161/81 (107) 99 08/24/20 00:00 98.1 66 18 159/85 (109) 99 08/23/20 21:00 Room Air 08/23/20 20:15 151/84 (106) 08/23/20 20:00 97.3 68 20 176/80 (112) 96 08/23/20 16:00 98.0 65 18 171/92 (118) 98 08/23/20 12:00 98.0 60 18 163/80 (107) 98 Height (Feet): 5 Height (Inches): 6.00 Weight (Pounds): 135 Current Medications Medications (Trade) Dose Ordered Sig/Deepali Route PRN Reason Start Time Stop Time Status Last Admin Dose Admin Acetaminophen (Tylenol) 650 mg Q4H PRN ORAL Temp >100.5 08/16/20 17:00 09/15/20 16:59 Dextrose (Dextrose 50%) 25 ml Q30M PRN IV Hypoglycemia 08/16/20 19:15 11/14/20 19:14 Dextrose (Dextrose 50%) 50 ml Q30M PRN IV Hypoglycemia 08/16/20 19:15 11/14/20 19:14 Heparin Sodium (Porcine) (Heparin 5000 units/ml) 5,000 units EVERY 12 HOURS SUBQ 08/16/20 21:00 09/30/20 20:59 08/24/20 09:54 Potassium Chloride 30 meq/ Dextrose 1,015 ml @ 100 mls/hr Q10H9M IV 08/22/20 07:00 09/21/20 06:59 08/22/20 22:20 Dorie Chaudhary MD Aug 24, 2020 11:51
--- NOTE | 2020-08-24 14:21 | General Progress Note ---
Subjective Allergies: Coded Allergies: VANCOMYCIN (Verified Allergy, Unknown, 08/16/20) Subjective Confused Objective Last 24 Hour Vital Signs Date Time Temp Pulse Resp B/P (MAP) Pulse Ox O2 Delivery O2 Flow Rate FiO2 08/24/20 12:00 97.8 66 18 165/84 (111) 97 08/24/20 08:00 97.7 78 18 151/73 (99) 97 08/24/20 04:00 97.9 62 18 161/81 (107) 99 08/24/20 00:00 98.1 66 18 159/85 (109) 99 08/23/20 21:00 Room Air 08/23/20 20:15 151/84 (106) 08/23/20 20:00 97.3 68 20 176/80 (112) 96 08/23/20 16:00 98.0 65 18 171/92 (118) 98 Intake and Output 08/23/20 08/24/20 19:00 07:00 Intake Total 120 ml Output Total 1 ml Balance 119 ml Intake Oral 120 ml Output Urine Total 1 ml # Voids 1 # Bowel Movements 1 Height (Feet): 5 Height (Inches): 6.00 Weight (Pounds): 135 Objective CV RR Lungs CTA Abd SNT. BS + E No CCE Assessment/Plan Assessment/Plan: Severe volume depletion, hypernatremia ---hypotonic IVF ---improving parameters. Holding SNF meds. Na down to 146. Continue IVF rehydration. DC IVF and recheck labs. No lab results. Ordered stat. Steven Dee MD Aug 24, 2020 14:21
[2020-08-24 16:50] LABS: ANION GAP 6 mmol/L (5-15); BLOOD UREA NITROGEN 15 mg/dL (7-18); CALCIUM 9.3 MG/DL (8.5-10.1); CARBON DIOXIDE 25 MMOL/L (21-32); CHLORIDE 113 MMOL/L (98-107); CREATININE 1.1 MG/DL (0.55-1.30); POTASSIUM 4.8 MMOL/L (3.5-5.1); SODIUM 144 MMOL/L (136-145)
--- NOTE | 2020-08-24 18:01 | Pulmonology Progress Note ---
Subjective ROS Limited/Unobtainable: Yes Constitutional: Denies: fever Allergies: Coded Allergies: VANCOMYCIN (Verified Allergy, Unknown, 08/16/20) Objective Last 24 Hour Vital Signs Date Time Temp Pulse Resp B/P (MAP) Pulse Ox O2 Delivery O2 Flow Rate FiO2 08/24/20 17:57 67 167/84 08/24/20 16:00 97.6 67 18 167/84 (111) 97 08/24/20 12:00 97.8 66 18 165/84 (111) 97 08/24/20 08:00 97.7 78 18 151/73 (99) 97 08/24/20 04:00 97.9 62 18 161/81 (107) 99 08/24/20 00:00 98.1 66 18 159/85 (109) 99 08/23/20 21:00 Room Air 08/23/20 20:15 151/84 (106) 08/23/20 20:00 97.3 68 20 176/80 (112) 96 Intake and Output 08/23/20 08/24/20 19:00 07:00 Intake Total 120 ml Output Total 1 ml Balance 119 ml Intake Oral 120 ml Output Urine Total 1 ml # Voids 1 # Bowel Movements 1 Laboratory Tests 08/24/20 16:00: Sodium Level 144, Potassium Level 4.8, Chloride Level 113H, Carbon Dioxide Level 25, Anion Gap 6, Blood Urea Nitrogen 15, Creatinine 1.1, Estimat Glomerular Filtration Rate > 60, Glucose Level 93, Calcium Level 9.3 Current Medications Medications (Trade) Dose Ordered Sig/Deepali Route PRN Reason Start Time Stop Time Status Last Admin Dose Admin Acetaminophen (Tylenol) 650 mg Q4H PRN ORAL Temp >100.5 08/16/20 17:00 09/15/20 16:59 Amlodipine Besylate (Norvasc) 10 mg DAILY ORAL 08/24/20 17:45 09/23/20 17:44 08/24/20 17:57 Dextrose (Dextrose 50%) 25 ml Q30M PRN IV Hypoglycemia 08/16/20 19:15 11/14/20 19:14 Dextrose (Dextrose 50%) 50 ml Q30M PRN IV Hypoglycemia 08/16/20 19:15 11/14/20 19:14 Heparin Sodium (Porcine) (Heparin 5000 units/ml) 5,000 units EVERY 12 HOURS SUBQ 08/16/20 21:00 09/30/20 20:59 08/24/20 09:54 Potassium Chloride 30 meq/ Dextrose 1,015 ml @ 100 mls/hr Q10H9M IV 08/22/20 07:00 09/21/20 06:59 08/22/20 22:20 Assessment/Plan Assessment/Plan Pulmonary Progress Note HPI: 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 Developed hypoxia after admission, currently on RA. UTI noted - ID following. The patient himself is not able to give any history. Past Medical History: Schizophrenia. Type 2 diabetes mellitus. Hypertensive cardiovascular disease. Gastroesophageal reflux disease. Status post gastrostomy tube, which has been pulled recently Dysphagia. Benign prostatic hypertrophy. Medications noted Allergies: Vancomycin: No known drug allergies. 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 Type 2 diabetes mellitus. Hypertensive cardiovascular disease. Gastroesophageal reflux disease. Status post gastrostomy tube, which has been pulled recently Dysphagia. Benign prostatic hypertrophy Plan: Continue Antibiotics- ID following O2 PRN IVF Bronchodilators PPX Monitor labs Zain Cortes MD Aug 24, 2020 18:01
[2020-08-25] VITALS: BP 155/87
[2020-08-25 04:00] VITALS: BP 153/98
[2020-08-25 08:00] VITALS: BP 152/87
[2020-08-25] MEDS: Heparin 5000 units/ml inj SUBQ SCH (09:00)
[2020-08-25 12:00] VITALS: BP 147/83
--- NOTE | 2020-08-25 15:20 | Pulmonology Progress Note ---
Subjective ROS Limited/Unobtainable: Yes Constitutional: Denies: fever Allergies: Coded Allergies: VANCOMYCIN (Verified Allergy, Unknown, 08/16/20) Subjective events noted weak appears dry feeder Objective Last 24 Hour Vital Signs Date Time Temp Pulse Resp B/P (MAP) Pulse Ox O2 Delivery O2 Flow Rate FiO2 08/25/20 12:00 97.8 79 21 147/83 (104) 95 08/25/20 09:04 86 152/87 08/25/20 09:00 Room Air 08/25/20 08:00 97.3 86 16 152/87 (108) 97 08/25/20 04:00 97.9 91 18 153/98 (116) 98 08/25/20 00:00 98.0 72 18 155/87 (109) 98 08/24/20 21:00 Room Air 08/24/20 20:00 97.9 72 18 164/84 (110) 99 08/24/20 18:53 74 173/79 (110) 08/24/20 17:57 67 167/84 08/24/20 16:00 97.6 67 18 167/84 (111) 97 Intake and Output 08/24/20 08/25/20 19:00 07:00 Intake Total 400 ml Balance 400 ml Intake Oral 400 ml # Voids 4 # Bowel Movements 2 2 Objective WDWN appears clear breath sounds bilaterally without rhonchi or wheeze [id number] without MRG NABS nontender no HSM no CCE nonfocal reduced skin turgor poor LOC Laboratory Tests 08/24/20 16:00: Sodium Level 144, Potassium Level 4.8, Chloride Level 113H, Carbon Dioxide Level 25, Anion Gap 6, Blood Urea Nitrogen 15, Creatinine 1.1, Estimat Glomerular Fi ltration Rate > 60, Glucose Level 93, Calcium Level 9.3 Current Medications Medications (Trade) Dose Ordered Sig/Deepali Route PRN Reason Start Time Stop Time Status Last Admin Dose Admin Acetaminophen (Tylenol) 650 mg Q4H PRN ORAL Temp >100.5 08/16/20 17:00 09/15/20 16:59 Amlodipine Besylate (Norvasc) 10 mg DAILY ORAL 08/24/20 17:45 09/23/20 17:44 08/25/20 09:04 Dextrose (Dextrose 50%) 25 ml Q30M PRN IV Hypoglycemia 08/16/20 19:15 11/14/20 19:14 Dextrose (Dextrose 50%) 50 ml Q30M PRN IV Hypoglycemia 08/16/20 19:15 11/14/20 19:14 Heparin Sodium (Porcine) (Heparin 5000 units/ml) 5,000 units EVERY 12 HOURS SUBQ 08/16/20 21:00 09/30/20 20:59 08/24/20 09:54 Assessment/Plan Assessment/Plan UTI Hypoxic Respiratory Failure Improved dehydration Severe hypernatremia Schizophrenia. Type 2 diabetes mellitus. Hypertensive cardiovascular disease. Gastroesophageal reflux disease. Status post gastrostomy tube Dysphagia. Benign prostatic hypertrophy Plan: Continue Antibiotics O2 as needed IVF Bronchodilators care noted impression, plan, and exam edited and reviewed in detail care discussed with George Doss MD Aug 25, 2020 15:20
--- NOTE | 2020-08-28 16:36 | Discharge Summary ---
Discharge Summary Discharge Summary _ Date of admission: 08/16/2020 Date of discharge: 08/25/[address] Dee History of Present Illness and Brief Hospital Course Mr. Carrillo is an 85-year-old male with past medical history of diabetes, hypertension, hyperlipidemia, CHF, CKD, BPH, GERD, chronic deconditioning, atrophy, dysphagia, schizophrenia, anxiety, and electrolyte disturbance, who was [facility] for decreased oral intake and altered mental status x1 day. Patient presented with clear breath sounds bilaterally without rhonchi or wheezing. However he appeared to be obtunded. Initial laboratory studies were concerning for severe dehydration with sodium level of 169, lactate elevation greater than 3, and FRANCY. Creatinine was 2.1. Patient was admitted to the hospital for rehabilitation, physical therapy and potential placement into a facility with increased resources for care. Patient tested negative for COVID-19. Her chest x-ray showed pulmonary infiltrates. He was started on broad-spectrum antibiotics for pneumonia coverage. He was also provided with Decadron given his hypoxia. 7 doses of Decadron were given. Given his hypoxemia after admission, patient was provided with 3 L/min oxygen via nasal cannula. He was weaned down oxygen as tolerated and was eventually off oxygen. Patient presented with severe volume depletion along with hypernatremia. He was provided with hypotonic IV fluids and his medications from SNF were held for the time being. His sodium level eventually improved. His urinalysis showed signs of urinary tract infection. Zosyn was started. Follow-up urine culture was ordered. Patient was also given one-time dose of levofloxacin. Patient also has history of hypertension. Norvasc was ordered for his elevated blood pressure. His electrolytes were closely monitored and was replaced as needed. On the day of discharge patient was medically stable. Patient was sent to SNF via ambulance. Consultants: Infectious disease Dr. Chaudhary Pulmonology Dr. Cortes Discharge Condition Improved and stable, back to baseline Final diagnoses Pneumonia Hypernatremia Hyperchloremia Dehydration UTI Hypoxic respiratory failure History of schizophrenia History of type 2 diabetes mellitus History of hypertensive cardiovascular disease History of GERD s/p gastrotomy tube Dysphagia History of BPH I have been assigned to dictate discharge summary for this account. I was not involved in the patient's management Grupo Cavazos Aug 28, 2020 16:36
== END 2020-08-25 15:00 | DRG 193 ==
LOC: EDUNIT# 11:13 → EDBD 11:13 → EMR 12:35 → 4E 12:52 → EDBEDREQ 14:18 → 3E 08-20 13:53
DX: J18.9 Pneumonia, unspecified organism (principal); G93.41 Metabolic encephalopathy; N17.9 Acute kidney failure, unspecified; F03.91 Unspecified dementia, unspecified severity, with behavioral disturbance; F05 Delirium due to known physiological condition; I13.0 Hypertensive heart and chronic kidney disease with heart failure and stage 1 through stage 4 chronic kidney disease, or unspecified chronic kidney disease; E87.0 Hyperosmolality and hypernatremia; E87.2 Acidosis; E86.0 Dehydration; I10 Essential (primary) hypertension; K21.9 Gastro-esophageal reflux disease without esophagitis; F20.9 Schizophrenia, unspecified; R13.10 Dysphagia, unspecified; G35 Multiple sclerosis; Z88.1 Allergy status to other antibiotic agents; N40.0 Benign prostatic hyperplasia without lower urinary tract symptoms; E86.9 Volume depletion, unspecified; R09.02 Hypoxemia; E78.5 Hyperlipidemia, unspecified; N18.9 Chronic kidney disease, unspecified; I50.9 Heart failure, unspecified; E87.8 Other disorders of electrolyte and fluid balance, not elsewhere classified; Z86.19 Personal history of other infectious and parasitic diseases
CPT/HCPCS: 36415; 71045; 80048; 80053; 81003; 82550; 83605; 83690; 83735; 83880; 84100; 84484; 85007; 85025; 86140; 93005; 93970; 96360; 99285; J7030; U0002